=== PATIENT | female | born 1980 | race Caucasian/White ===

== ENCOUNTER 2019-08-11 02:54 | Emergency (ER) | payer BC, SELFPAY ==
[2019-08-11] VITALS (11 sets, daily range): BP systolic 101–168; BP diastolic 63–92; PULSE 69–98; RESP 15–18; TEMP 36.8; O2SAT 95–100; BMI 49.6
--- NOTE | 2019-08-11 03:20 | ED_ITS ---
Entered by Mine Dan, acting as scribe for Jere Gregory DO Documented by User: Jere Gregory DO 08/11/19 06:20 HPI - Abdominal Pain General: Chief Complaint: Abdominal Pain Stated Complaint: ABD PAIN Time Seen by Provider: 08/11/19 03:05 Source: patient Mode of arrival: ambulatory History of Present Illness: HPI narrative: 39 y/o female presents to the ED with complaint of abd pain for the past 11 hours. Pt states she has had increased gas/belching. MD elicited complaint: abdominal pain Onset (ago): hour(s) (11) Pain Consistency: constant Location: Other (right side/hip) Severity: mild Radiation: RLQ and back Associated Symptoms: Reports belching, bloating and nausea; Denies chills, dysuria, fever(s), hematochezia, hematuria, melena and vomiting Review of Systems Const: Denies: fever or chills ENMT: Denies: painful swallowing, swelling of lips/tongue, bleeding gums or post nasal drip Card: Denies: chest pain, palpitations, irregular heart rhythm, edema, swelling of feet/ankles, shortness of breath on exertion or shortness of breath when lying down Resp: Denies: shortness of breath, productive cough, non-productive cough or wheezing GI: Reports: abdominal pain, nausea, bloating and belching; Denies: vomiting, rectal pain, blood in stool or black tarry stool : Reports: flank pain; Denies: painful urination, urinary frequency, urinary urgency or blood in urine Musc: Reports: back pain; Denies: neck pain Skin/Breast: Denies: rash, itching or redness Neuro: Denies: headache, dizziness or vertigo Psych: Denies: anxiety PFSH ED PFSH: Statuses (acute, chronic, etc) shown below reflect problem list status as previously entered and may not be historically accurate Medical History (Updated 08/11/19 @ 14:35 by Everett Gibson MD) Chronic tension headaches (Acute) Depression (Acute) Hypertension (Acute) Says when she lost some weight, the hypertension got better and she is now off medication Surgical History (Updated 08/11/19 @ 14:23 by Everett Gibson MD) No history of previous surgery (Acute) Social History Smoking and tobacco status: never smoked Physical Exam Const: GENERAL APPEARANCE: well developed ORIENTATION/CONSCIOUSNESS: Yes oriented to person, Yes oriented to place and Yes oriented to time HENMT: COMMON NORMALS: normocephalic, external ears normal and external nose normal HEAD & SCALP: normocephalic; no scalp tenderness FACE & SINUS: normal facial exam NOSE: external nose normal and no nasal discharge EXTERNAL EAR: Yes external ears normal Eye: COMMON NORMALS: PERRL, EOMs intact bilaterally and conjunctivae normal EYELID: eyelids normal CONJUNCTIVA: Yes conjunctivae normal PUPIL: Yes PERRL Neck/C-Spine: COMMON NORMALS: full ROM GENERAL: No tracheal deviation Chest: COMMONS NORMALS: inspection of chest normal CHEST: No tenderness Resp: COMMON NORMALS: clear to auscultation bilaterally EFFORT & INSPECTION: No tachypneic, No respiratory distress, No retractions, No uses accessory muscles and No tracheal deviation AUSCULTATION: clear to auscultation bilaterally, no rhonchi, no wheezes and lung sounds not diminished Cardio: COMMON NORMALS: regular rate and regular rhythm RATE: regular rate RHYTHM: regular rhythm HEART SOUNDS: no murmurs PERIPHERAL PULSES: radial pulses present GI: COMMON NORMALS: soft to palpation INSPECTION: No abdominal distension and Yes central obesity AUSCULTATION: No hyperactive bowel sounds and No hypoactive bowel sounds PALPATION: Yes soft, Yes tender Details: RLQ, RUQ and other (epigastric), No guarding, No rigid and Yes rebound tenderness present (mild) PERCUSSION: no dullness to percussion and no tympanic to percussion : BLADDER/KIDNEY EXAM: Yes CVA tenderness on the right Back/Pelvis: GENERAL BACK: Yes CVA tenderness Neuro: SENSORIUM/ORIENTATION: Yes oriented to person, Yes oriented to place and Yes oriented to time Psych: COMMON NORMALS: mental status grossly normal Skin: COMMON NORMALS: no rashes or lesions noted GENERAL SKIN EXAM: no rashes or lesions noted Course ED course: 39-year-old female with epigastric and right upper quadrant pain. She is tender. Her white count is 9.4. She has significant elevation in her liver enzymes with a bilirubin of 3.8. CT shows dilatation of the biliary tree without gallbladder wall thickening or apparent stone. Gallbladder ultrasound has been ordered. She will be checked out to Dr. Holden. Vital Signs: Vital signs: Vital Signs Temperature 98.3 F 08/11/19 03:12 Pulse Rate 91 08/11/19 14:20 Respiratory Rate 18 08/11/19 06:00 Blood Pressure 131/82 08/11/19 14:20 Pulse Oximetry 97 08/11/19 14:20 MDM - Abdominal Pain Lab Data: Labs: Lab Results 08/11/19 08/11/19 08/11/19 Range/Units 03:56 03:56 03:56 WBC 9.4 (4.0-10.0) 10^3/ uL RBC 5.04 (4.1-5.3) 10^6/u L Hgb 14.4 (11.5-15.3) g/dL Hct 42.9 (37.0-47.0) % MCV 85.1 (81-99) fL MCH 28.6 (28.0-34.0) pg MCHC 33.6 (30.0-36.0) g/dL RDW 14.6 (12.1-15.1) % Plt Count 236 (130-400) 10^3/c mm MPV 9.1 (7.4-10.4) fL Neut % (Auto) 84.2 % Lymph % (Auto) 10.6 % [place] % (Auto) 4.4 % Eos % (Auto) 0.4 % Baso % (Auto) 0.2 % Neut # (Auto) 7.9 H (1.8-7.7) 10^3/u L Lymph # (Auto) 1.0 (0.8-4.8) 10^3/u L [place] # (Auto) 0.4 (0.2-0.9) 10^3/u L Eos # (Auto) 0.0 (0.0-0.8) 10^3/u L Baso # (Auto) 0.0 (0.0-0.1) 10^3/u L Nucleated RBC % (a uto) 0 % Nucleated RBCs # 0.0 /100WBC Sodium 135 L (136-145) mmol/L Potassium 4.0 (3.5-5.1) mmol/L Chloride 102 (98-107) mmol/L Carbon Dioxide 22 (22-29) mmol/L Anion Gap 15.0 (5-19) BUN 5 L (6-20) mg/dL Creatinine 0.6 (0.5-0.9) mg/dL GFR Calculation 110.7 (90-130) mL/min Glucose 159 H (74-109) mg/dL Calcium 10.1 (8.5-10.5) mg/dL Total Bilirubin 3.8 H (0.15-1.2) mg/dL AST 455 H (0-32) U/L ALT 650 H (0-33) U/L Alkaline Phosphata se 136 H (35-105) IU/L C-Reactive Protein 6.2 H (0.0-4.9) mg/L Total Protein 7.7 (6.6-8.7) g/dL Albumin 4.1 (3.5-5.2) g/dL Globulin 3.6 (1.3-4.6) g/dL Lipase 3546 H (13-60) U/L HCG, Qual Negative (Negative) Urine Color (Yellow) Urine Appearance (CLEAR) Urine pH (5-7) Ur Specific Gravit y (1.005-1.030) Urine Protein (Negative) Urine Glucose (UA) (Normal) Urine Ketones (Negative) Urine Occult Blood (Negative) Urine Nitrate (Negative) Urine Bilirubin (NEGATIVE) Urine Urobilinogen (Negative) mg/dL Ur Leukocyte Katie ase (Negative) Urine RBC (0-2) /hpf Urine WBC (0-5) /hpf Ur Squamous Epith Cells (0-5) Urine Bacteria (NONE) 08/11/19 Range/Units 04:00 WBC (4.0-10.0) 10^3/ uL RBC (4.1-5.3) 10^6/u L Hgb (11.5-15.3) g/dL Hct (37.0-47.0) % MCV (81-99) fL MCH (28.0-34.0) pg MCHC (30.0-36.0) g/dL RDW (12.1-15.1) % Plt Count (130-400) 10^3/c mm MPV (7.4-10.4) fL Neut % (Auto) % Lymph % (Auto) % [place] % (Auto) % Eos % (Auto) % Baso % (Auto) % Neut # (Auto) (1.8-7.7) 10^3/u L Lymph # (Auto) (0.8-4.8) 10^3/u L [place] # (Auto) (0.2-0.9) 10^3/u L Eos # (Auto) (0.0-0.8) 10^3/u L Baso # (Auto) (0.0-0.1) 10^3/u L Nucleated RBC % (a uto) % Nucleated RBCs # /100WBC Sodium (136-145) mmol/L Potassium (3.5-5.1) mmol/L Chloride (98-107) mmol/L Carbon Dioxide (22-29) mmol/L Anion Gap (5-19) BUN (6-20) mg/dL Creatinine (0.5-0.9) mg/dL GFR Calculation (90-130) mL/min Glucose (74-109) mg/dL Calcium (8.5-10.5) mg/dL Total Bilirubin (0.15-1.2) mg/dL AST (0-32) U/L ALT (0-33) U/L Alkaline Phosphata se (35-105) IU/L C-Reactive Protein (0.0-4.9) mg/L Total Protein (6.6-8.7) g/dL Albumin (3.5-5.2) g/dL Globulin (1.3-4.6) g/dL Lipase (13-60) U/L HCG, Qual (Negative) Urine Color Yellow (Yellow) Urine Appearance Clear (CLEAR) Urine pH 7 (5-7) Ur Specific Gravit y 1.010 (1.005-1.030) Urine Protein Neg (Negative) Urine Glucose (UA) Norm (Normal) Urine Ketones Negative (Negative) Urine Occult Blood Trace H (Negative) Urine Nitrate Negative (Negative) Urine Bilirubin Neg (NEGATIVE) Urine Urobilinogen Norm (Negative) mg/dL Ur Leukocyte Katie ase Negative (Negative) Urine RBC Rare (0-2) /hpf Urine WBC 0-4 H (0-5) /hpf Ur Squamous Epith Cells 0-4 H (0-5) Urine Bacteria 1+ H (NONE) Discharge Plan Discharge Patient Disposition: Home, Self-Care Clinical Impression: Cholelithiasis and acute cholecystitis without obstruction Condition: Stable Prescriptions: New hydrocodone-acetaminophen 5-325 mg tablet 1 tab PO Q6H PRN (Reason: pain) Qty: 20 RF: 0 Zofran 4 mg tablet 4 mg PO Q6H PRN (Reason: nausea and vomiting) Qty: 14 RF: 0 omeprazole 20 mg tablet,delayed release (DR/EC) 20 mg PO DAILY 56 Days Qty: 56 RF: 0 No Action Latuda 60 mg tablet 60 mg PO DAILY RF: 0 Discharge Orders: Discharge Order (Routine); Ordered 08/11/19 Ordered By: Papito Pendleton Referrals: Everett Gibson MD [Physician] - (Please call Dr. Gibson's office to make an appointment to be seen as soon as you are able) Discharge Diet: Low Fat and Clear Liquid Discharge Activity: Increase activity as tolerated Activity Restrictions/Additional Instructions: Low-fat diet. Pain medications and nausea medications as above. Has recurrence of symptoms and pains uncontrolled return follow-up with Dr. Gibson's office within the week. Discharge Date/Time: 08/11/19 14:20 Sign Out Sign Out Data: Patient Sign Out occurred on 08/11/19 at 07:02. Patient's care was discussed, and care was transferred from to Papito Pendleton DO. 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 Gregory at change of shift. There is a concern about common bile duct obstruction based on the CT. Ultrasound does not show significant dilation of the common bile duct will get MRCP discussed with patient Discussed with Dr. Gibson he felt the patient be transferred to [place] to a GI specialist for possible ERCP. After conferring with Sor[facility] they refused transfer stating that they would have general surgery do a cholecystectomy and do a intraoperative cholangiogram. I discussed again with Dr. Gibson he came and seen the patient ultimately the patient decided they would rather go home follow-up for scheduled cholecystectomy at a later date see the discharge instructions. Patient was advised to contact Dr. solorio within the next week to set up a follow-up appointment to arrange for definitive care. PFS ED PFSH: Statuses (acute, chronic, etc) shown below reflect problem list status as previously entered and may not be historically accurate Medical History (Updated 08/11/19 @ 14:35 by Everett Gibson MD) Chronic tension headaches (Acute) Depression (Acute) Hypertension (Acute) Says when she lost some weight, the hypertension got better and she is now off medication Surgical History (Updated 08/11/19 @ 14:23 by Everett Gibson MD) No history of previous surgery (Acute) Social History Smoking and tobacco status: never smoked Course Vital Signs: Vital signs: Vital Signs Temperature 98.3 F 08/11/19 03:12 Pulse Rate 91 08/11/19 14:20 Respiratory Rate 18 08/11/19 06:00 Blood Pressure 131/82 08/11/19 14:20 Pulse Oximetry 97 08/11/19 14:20 MDM - Abdominal Pain Lab Data: Labs: Lab Results 08/11/19 08/11/19 08/11/19 Range/Units 03:56 03:56 03:56 WBC 9.4 (4.0-10.0) 10^3/ uL RBC 5.04 (4.1-5.3) 10^6/u L Hgb 14.4 (11.5-15.3) g/dL Hct 42.9 (37.0-47.0) % MCV 85.1 (81-99) fL MCH 28.6 (28.0-34.0) pg MCHC 33.6 (30.0-36.0) g/dL RDW 14.6 (12.1-15.1) % Plt Count 236 (130-400) 10^3/c mm MPV 9.1 (7.4-10.4) fL Neut % (Auto) 84.2 % Lymph % (Auto) 10.6 % [place] % (Auto) 4.4 % Eos % (Auto) 0.4 % Baso % (Auto) 0.2 % Neut # (Auto) 7.9 H (1.8-7.7) 10^3/u L Lymph # (Auto) 1.0 (0.8-4.8) 10^3/u L [place] # (Auto) 0.4 (0.2-0.9) 10^3/u L Eos # (Auto) 0.0 (0.0-0.8) 10^3/u L Baso # (Auto) 0.0 (0.0-0.1) 10^3/u L Nucleated RBC % (a uto) 0 % Nucleated RBCs # 0.0 /100WBC Sodium 135 L (136-145) mmol/L Potassium 4.0 (3.5-5.1) mmol/L Chloride 102 (98-107) mmol/L Carbon Dioxide 22 (22-29) mmol/L Anion Gap 15.0 (5-19) BUN 5 L (6-20) mg/dL Creatinine 0.6 (0.5-0.9) mg/dL GFR Calculation 110.7 (90-130) mL/min Glucose 159 H (74-109) mg/dL Calcium 10.1 (8.5-10.5) mg/dL Total Bilirubin 3.8 H (0.15-1.2) mg/dL AST 455 H (0-32) U/L ALT 650 H (0-33) U/L Alkaline Phosphata se 136 H (35-105) IU/L C-Reactive Protein 6.2 H (0.0-4.9) mg/L Total Protein 7.7 (6.6-8.7) g/dL Albumin 4.1 (3.5-5.2) g/dL Globulin 3.6 (1.3-4.6) g/dL Lipase 3546 H (13-60) U/L HCG, Qual Negative (Negative) Urine Color (Yellow) Urine Appearance (CLEAR) Urine pH (5-7) Ur Specific Gravit y (1.005-1.030) Urine Protein (Negative) Urine Glucose (UA) (Normal) Urine Ketones (Negative) Urine Occult Blood (Negative) Urine Nitrate (Negative) Urine Bilirubin (NEGATIVE) Urine Urobilinogen (Negative) mg/dL Ur Leukocyte Katie ase (Negative) Urine RBC (0-2) /hpf Urine WBC (0-5) /hpf Ur Squamous Epith Cells (0-5) Urine Bacteria (NONE) 08/11/19 Range/Units 04:00 WBC (4.0-10.0) 10^3/ uL RBC (4.1-5.3) 10^6/u L Hgb (11.5-15.3) g/dL Hct (37.0-47.0) % MCV (81-99) fL MCH (28.0-34.0) pg MCHC (30.0-36.0) g/dL RDW (12.1-15.1) % Plt Count (130-400) 10^3/c mm MPV (7.4-10.4) fL Neut % (Auto) % Lymph % (Auto) % [place] % (Auto) % Eos % (Auto) % Baso % (Auto) % Neut # (Auto) (1.8-7.7) 10^3/u L Lymph # (Auto) (0.8-4.8) 10^3/u L [place] # (Auto) (0.2-0.9) 10^3/u L Eos # (Auto) (0.0-0.8) 10^3/u L Baso # (Auto) (0.0-0.1) 10^3/u L Nucleated RBC % (a uto) % Nucleated RBCs # /100WBC Sodium (136-145) mmol/L Potassium (3.5-5.1) mmol/L Chloride (98-107) mmol/L Carbon Dioxide (22-29) mmol/L Anion Gap (5-19) BUN (6-20) mg/dL Creatinine (0.5-0.9) mg/dL GFR Calculation (90-130) mL/min Glucose (74-109) mg/dL Calcium (8.5-10.5) mg/dL Total Bilirubin (0.15-1.2) mg/dL AST (0-32) U/L ALT (0-33) U/L Alkaline Phosphata se (35-105) IU/L C-Reactive Protein (0.0-4.9) mg/L Total Protein (6.6-8.7) g/dL Albumin (3.5-5.2) g/dL Globulin (1.3-4.6) g/dL Lipase (13-60) U/L HCG, Qual (Negative) Urine Color Yellow (Yellow) Urine Appearance Clear (CLEAR) Urine pH 7 (5-7) Ur Specific Gravit y 1.010 (1.005-1.030) Urine Protein Neg (Negative) Urine Glucose (UA) Norm (Normal) Urine Ketones Negative (Negative) Urine Occult Blood Trace H (Negative) Urine Nitrate Negative (Negative) Urine Bilirubin Neg (NEGATIVE) Urine Urobilinogen Norm (Negative) mg/dL Ur Leukocyte Katie ase Negative (Negative) Urine RBC Rare (0-2) /hpf Urine WBC 0-4 H (0-5) /hpf Ur Squamous Epith Cells 0-4 H (0-5) Urine Bacteria 1+ H (NONE) Discharge Plan Discharge Patient Disposition: Home, Self-Care Clinical Impression: Cholelithiasis and acute cholecystitis without obstruction Condition: Stable Prescriptions: New hydrocodone-acetaminophen 5-325 mg tablet 1 tab PO Q6H PRN (Reason: pain) Qty: 20 RF: 0 Zofran 4 mg tablet 4 mg PO Q6H PRN (Reason: nausea and vomiting) Qty: 14 RF: 0 omeprazole 20 mg tablet,delayed release (DR/EC) 20 mg PO DAILY 56 Days Qty: 56 RF: 0 No Action Latuda 60 mg tablet 60 mg PO DAILY RF: 0 Discharge Orders: Discharge Order (Routine); Ordered 08/11/19 Ordered By: Papito Pednleton Referrals: Everett Gibson MD [Physician] - (Please call Dr. Gibson's office to make an appointment to be seen as soon as you are able) Discharge Diet: Low Fat and Clear Liquid Discharge Activity: Increase activity as tolerated Activity Restrictions/Additional Instructions: Low-fat diet. Pain medications and nausea medications as above. Has recurrence of symptoms and pains uncontrolled return follow-up with Dr. Gibson's office within the week. Discharge Date/Time: 08/11/19 14:20 Sign Out Sign Out Data: Patient Sign Out occurred on 08/11/19 at 07:02. Patient's care was discussed, and care was transferred from to Papito Pendleton DO. Coding Level of Care Code ED Cured Meat Packing Supervisor for Chg Fwd The documentation recorded by the pabloibeSy Ashley, accurately reflects the service I personally performed and the decisions made by , Jere Gregory DO Aug 11, 2019 02:54
--- NOTE | 2019-08-11 03:40 | CTR_ITS ---
PROCEDURE INFORMATION: Exam: CT Abdomen And Pelvis With Contrast Exam date and time: 08/11/2019 4:15 AM Age: 39 years old Clinical indication: Abdominal pain; Localized; Right lower quadrant (rlq); Additional info: Abd pain TECHNIQUE: Imaging protocol: Computed tomography of the abdomen and pelvis with intravenous contrast. Total DLP: 2001.98 mGy-cm Radiation optimization: All CT scans at this facility use at least one of these dose optimization techniques: automated exposure control; mA and/or kV adjustment per patient size (includes targeted exams where dose is matched to clinical indication); or iterative reconstruction. Contrast material: OMNI 300; Contrast volume: 95 ml; Contrast route: IV; COMPARISON: US pelvic with transvaginal 06/06/2016 7:52 AM FINDINGS: Visualized portions of the lung bases are clear. Mild intrahepatic biliary dilation. The common bile duct is dilated to 1 cm maximally. No obstructing stone or mass directly identified. The gallbladder, spleen, pancreas, adrenal glands, and kidneys are unremarkable. A normal-appearing appendix is seen in the right lower quadrant. No evidence of bowel obstruction. No evidence of diverticulitis. No free intraperitoneal air or fluid identified. The bladder and uterus are unremarkable. The abdominal aorta is nonaneurysmal. Mild degenerative changes of the lower thoracic spine and the lumbar spine. CT/CT abdomen pelvis w con* [id number] IMPRESSION: 1. Intrahepatic and extrahepatic biliary dilation identified. No obstructing stone or mass directly identified. Radiation Dose CTDIVOL = (mGy): DLP = 2001.98 (mGy-cm)
[2019-08-11] MEDS: sodium chloride 0.9% 1,000 ML 999 ML IV (04:03)
[2019-08-11 04:05] LABS: Basophils % 0.2 %; Eosinophils % 0.4 %; Hematocrit 42.9 % (37.0-47.0); Hemoglobin 14.4 g/dL (11.5-15.3); Lymphocytes % 10.6 %; Mean Corpuscular HGB Conc 33.6 g/dL (30.0-36.0); Mean Corpuscular Hemoglobin 28.6 pg (28.0-34.0); Mean Corpuscular Volume 85.1 fL (81-99); Mean Platelet Volume 9.1 fL (7.4-10.4); Monocytes # 0.4 10^3/uL (0.2-0.9); Monocytes % 4.4 %; Neutrophils # 7.9 10^3/uL (1.8-7.7); Neutrophils % 84.2 %; Nucleated Red Blood Cells % 0 %; Platelet Count 236 10^3/cmm (130-400); Red Blood Count 5.04 10^6/uL (4.1-5.3); Red Cell Distribution Width 14.6 % (12.1-15.1); White Blood Count 9.4 10^3/uL (4.0-10.0)
[2019-08-11] MEDS: ondansetron 2 mg/ML SDV 2 mL 4 MG IM (04:06)
[2019-08-11] MEDS: ketorolac 30 mg/mL INJ IVP (04:06)
[2019-08-11] MEDS: morphine 4 mg/mL SDV 1 mL IVP (04:08)
[2019-08-11] MEDS: iohexol 300 mg/mL 100 mL Btl IV (04:17)
[2019-08-11 04:20] LABS: Add Urine Microscopic? YES; Bilirubin Urine Neg (NEGATIVE); Blood Urine Trace (Negative); Glucose Urine UA Norm (Normal); Ketones Urine Negative (Negative); Leukocyte Esterase Urine Negative (Negative); Nitrate Urine Negative (Negative); Protein Urine Neg (Negative); RBC Urine RARE /hpf (0-2); Squamous Epithelial Cell Urine 0-4 (0-5); Urine Appearance Clear (CLEAR); Urine Color Yellow (Yellow); Urobilinogen Urine Norm (Negative); WBC Urine 0-4 /hpf (0-5); pH Urine 7 (5-7)
[2019-08-11 04:21] LABS: Add Urine Culture? No; Bacteria Urine 1+
[2019-08-11 04:25] LABS: HCG, Serum Qual Negative (Negative)
[2019-08-11 04:33] LABS: Alanine Aminotransferase 650 U/L (0-33); Albumin Level 4.1 g/dL (3.5-5.2); Alkaline Phosphatase 136 IU/L (35-105); Aspartate Amino Transferase 455 U/L (0-32); Blood Urea Nitrogen 5 mg/dL (6-20); Calcium 10.1 mg/dL (8.5-10.5); Carbon Dioxide 22 mmol/L (22-29); Chloride 102 mmol/L (98-107); Globulin 3.6 g/dL (1.3-4.6); Glomerular Filtration Rate 110.7 mL/min (90-130); Glucose 159 mg/dL (74-109); Sodium 135 mmol/L (136-145); Total Bilirubin 3.8 mg/dL (0.15-1.2); Total Protein 7.7 g/dL (6.6-8.7)
[2019-08-11 05:10] LABS: C Reactive Protein 6.2 mg/L (0.0-4.9)
--- NOTE | 2019-08-11 05:48 | US_ITS ---
WS: [id number] ULTRASOUND ABDOMEN LIMITED CLINICAL INFORMATION: ruq pain, elevated lft COMPARISON: None. FINDINGS: Liver Size: Enlarged Craniocaudal length: 20.7 cm. Echogenicity: Normal. Surface nodularity: None. Mass (size and location): None. Bile ducts Intrahepatic ducts: Mild dilatation Common bile duct diameter: 8.2 mm. Gallbladder is contracted Cholelithiasis Gallstones: Present Gallbladder sludge: Present Gallbladder wall thickenin.3 mm Pericholecystic fluid: None. Sonographic Lopez sign: Absent. Pancreas Normal as visualized. Right kidney: Normal. Hydronephrosis: None. Size: 12.5 cm x 6.1 cm x 5.3 cm. Abdominal aorta and IVC Visualized portions are normal. Ascites: None. US/US gall bladder [id number] IMPRESSION: 1. Hepatomegaly with mild intrahepatic biliary ductal dilatation. 2. Gallbladder is contracted. Cholelithiasis with sludge. Mild wall thickening measuring 4.3 mm. 3. Dilated common bile duct measuring 8.2 mm. No visualized choledocholithiasi s. 4. No hydronephrosis in right kidney.
[2019-08-11 06:52] LABS: Lipase 3546 U/L (13-60)
--- NOTE | 2019-08-11 07:03 | MR_ITS ---
WS: [id number] MRI/MRCP OF THE ABDOMEN WITHOUT GADOLINIUM ENHANCEMENT TECHNIQUE: Thin and thick slab MRCP, Axial T2, Coronal MRCP, Axial Dual Echo, and Axial 2-D Fiesta imaging was obtained. Coronal 2-D Fiesta imaging. CLINICAL INFORMATION: elevated LFTs, gallstones on US, mildly dialated CBD COMPARISON: Ultrasound and CT August 11, 2019 FINDINGS: Liver is normal in appearance. Minimal intrahepatic biliary ductal dilatation. Normal portal vein and splenic vein. Common bile duct appears to taper normally. No visualized common bile duct filling def ects to indicate choledocholithiasis. Pancreas is normal in appearance. Normal abdominal aorta. Gallb ladder is contracted. Cholelithiasis. Sludge in gallbladder. Both kidneys are normal in appearance. No hydronephrosis. Adrenal glands are normal. MR/MR MRCP [id number] Impression: 1. Minimal intrahepatic biliary duct dilatation. No choledocholithiasis. 2. Common bile duct tapers normally to the pancreatic head. 3. No filling defects in the common bile duct. 4. Gallbladder is contracted with cholelithiasis.
--- NOTE | 2019-08-11 10:34 | PC.NURSE ---
pt off unit to MRI with ambulance
--- NOTE | 2019-08-11 11:57 | PC.NURSE ---
pt back from MRI
--- NOTE | 2019-08-11 12:48 | PC.NURSE ---
pt reported to be in abd pain. Orders received for morphine. Medication offered to Pt and Pt declined at this time.
--- NOTE | 2019-08-11 13:30 | ED_ITS ---
Entered by Bethany Cummings, acting as scribe for Aug 11, 2019 02:54 HPI - Abdominal Pain General: Chief Complaint: Abdominal Pain Stated Complaint: ABD PAIN Time Seen by Provider: 08/11/19 03:05 Source: patient Mode of arrival: ambulatory History of Present Illness: MD elicited complaint: abdominal pain Severity: mild PFSH ED PFSH: Statuses (acute, chronic, etc) shown below reflect problem list status as previously entered and may not be historically accurate Medical History (Updated 08/11/19 @ 14:35 by Everett Gibson MD) Chronic tension headaches (Acute) Depression (Acute) Hypertension (Acute) Says when she lost some weight, the hypertension got better and she is now off medication Surgical History (Updated 08/11/19 @ 14:23 by Everett Gibson MD) No history of previous surgery (Acute) Social History Smoking and tobacco status: never smoked Course Consultations: Consultation #1: Discussed case with Dr. Gibson, he felt it was necessary for pt to be transferred. Spoke with patient, informed her she would needed to be transferred, she requested to go to [facility]. Time: 12:55 Consultation #2: Called [facility] Transfer lineKari the transfer coodinator stated that she would get a surgeon for us to talk with. Kari stated that she will call us back when she has one online. Time: 13:00 Consultation #3: Called [facility] Transfer lineKari the transfer coodinator stated that she would get a surgeon for us to talk with. Kari stated that she will call us back when she has one online Time: 13:15 Additional Consultation(s): 13:25- Contacted Dr. Gibson back, informed him what the surgeon at [facility] stated. Dr. Gibson agreed to come down and see patient in the ED. Vital Signs: Vital signs: Vital Signs Temperature 98.3 F 08/11/19 03:12 Pulse Rate 91 08/11/19 14:20 Respiratory Rate 18 08/11/19 06:00 Blood Pressure 131/82 08/11/19 14:20 Pulse Oximetry 97 08/11/19 14:20 MDM - Abdominal Pain Lab Data: Labs: Lab Results 02/03/20 02/03/20 02/03/20 Range/Units 03:56 03:56 03:56 WBC 9.4 (4.0-10.0) 10^3/ uL RBC 5.04 (4.1-5.3) 10^6/u L Hgb 14.4 (11.5-15.3) g/dL Hct 42.9 (37.0-47.0) % MCV 85.1 (81-99) fL MCH 28.6 (28.0-34.0) pg MCHC 33.6 (30.0-36.0) g/dL RDW 14.6 (12.1-15.1) % Plt Count 236 (130-400) 10^3/c mm MPV 9.1 (7.4-10.4) fL Neut % (Auto) 84.2 % Lymph % (Auto) 10.6 % Ector % (Auto) 4.4 % Eos % (Auto) 0.4 % Baso % (Auto) 0.2 % Neut # (Auto) 7.9 H (1.8-7.7) 10^3/u L Lymph # (Auto) 1.0 (0.8-4.8) 10^3/u L Ector # (Auto) 0.4 (0.2-0.9) 10^3/u L Eos # (Auto) 0.0 (0.0-0.8) 10^3/u L Baso # (Auto) 0.0 (0.0-0.1) 10^3/u L Nucleated RBC % (a uto) 0 % Nucleated RBCs # 0.0 /100WBC Sodium 135 L (136-145) mmol/L Potassium 4.0 (3.5-5.1) mmol/L Chloride 102 (98-107) mmol/L Carbon Dioxide 22 (22-29) mmol/L Anion Gap 15.0 (5-19) BUN 5 L (6-20) mg/dL Creatinine 0.6 (0.5-0.9) mg/dL GFR Calculation 110.7 (90-130) mL/min Glucose 159 H (74-109) mg/dL Calcium 10.1 (8.5-10.5) mg/dL Total Bilirubin 3.8 H (0.15-1.2) mg/dL AST 455 H (0-32) U/L ALT 650 H (0-33) U/L Alkaline Phosphata se 136 H (35-105) IU/L C-Reactive Protein 6.2 H (0.0-4.9) mg/L Total Protein 7.7 (6.6-8.7) g/dL Albumin 4.1 (3.5-5.2) g/dL Globulin 3.6 (1.3-4.6) g/dL Lipase 3546 H (13-60) U/L HCG, Qual Negative (Negative) Urine Color (Yellow) Urine Appearance (CLEAR) Urine pH (5-7) Ur Specific Gravit y (1.005-1.030) Urine Protein (Negative) Urine Glucose (UA) (Normal) Urine Ketones (Negative) Urine Occult Blood (Negative) Urine Nitrate (Negative) Urine Bilirubin (NEGATIVE) Urine Urobilinogen (Negative) mg/dL Ur Leukocyte Katie ase (Negative) Urine RBC (0-2) /hpf Urine WBC (0-5) /hpf Ur Squamous Epith Cells (0-5) Urine Bacteria (NONE) 08/11/19 Range/Units 04:00 WBC (4.0-10.0) 10^3/ uL RBC (4.1-5.3) 10^6/u L Hgb (11.5-15.3) g/dL Hct (37.0-47.0) % MCV (81-99) fL MCH (28.0-34.0) pg MCHC (30.0-36.0) g/dL RDW (12.1-15.1) % Plt Count (130-400) 10^3/c mm MPV (7.4-10.4) fL Neut % (Auto) % Lymph % (Auto) % Ector % (Auto) % Eos % (Auto) % Baso % (Auto) % Neut # (Auto) (1.8-7.7) 10^3/u L Lymph # (Auto) (0.8-4.8) 10^3/u L Ector # (Auto) (0.2-0.9) 10^3/u L Eos # (Auto) (0.0-0.8) 10^3/u L Baso # (Auto) (0.0-0.1) 10^3/u L Nucleated RBC % (a uto) % Nucleated RBCs # /100WBC Sodium (136-145) mmol/L Potassium (3.5-5.1) mmol/L Chloride (98-107) mmol/L Carbon Dioxide (22-29) mmol/L Anion Gap (5-19) BUN (6-20) mg/dL Creatinine (0.5-0.9) mg/dL GFR Calculation (90-130) mL/min Glucose (74-109) mg/dL Calcium (8.5-10.5) mg/dL Total Bilirubin (0.15-1.2) mg/dL AST (0-32) U/L ALT (0-33) U/L Alkaline Phosphata se (35-105) IU/L C-Reactive Protein (0.0-4.9) mg/L Total Protein (6.6-8.7) g/dL Albumin (3.5-5.2) g/dL Globulin (1.3-4.6) g/dL Lipase (13-60) U/L HCG, Qual (Negative) Urine Color Yellow (Yellow) Urine Appearance Clear (CLEAR) Urine pH 7 (5-7) Ur Specific Gravit y 1.010 (1.005-1.030) Urine Protein Neg (Negative) Urine Glucose (UA) Norm (Normal) Urine Ketones Negative (Negative) Urine Occult Blood Trace H (Negative) Urine Nitrate Negative (Negative) Urine Bilirubin Neg (NEGATIVE) Urine Urobilinogen Norm (Negative) mg/dL Ur Leukocyte Katie ase Negative (Negative) Urine RBC Rare (0-2) /hpf Urine WBC 0-4 H (0-5) /hpf Ur Squamous Epith Cells 0-4 H (0-5) Urine Bacteria 1+ H (NONE) Discharge Plan Discharge Patient Disposition: Home, Self-Care Clinical Impression: Cholelithiasis and acute cholecystitis without obstruction Condition: Stable Prescriptions: New hydrocodone-acetaminophen 5-325 mg tablet 1 tab PO Q6H PRN (Reason: pain) Qty: 20 RF: 0 Zofran 4 mg tablet 4 mg PO Q6H PRN (Reason: nausea and vomiting) Qty: 14 RF: 0 omeprazole 20 mg tablet,delayed release (DR/EC) 20 mg PO DAILY 56 Days Qty: 56 RF: 0 No Action Latuda 60 mg tablet 60 mg PO DAILY RF: 0 Discharge Orders: Discharge Order (Routine); Ordered 08/11/19 Ordered By: Papito Pendleton Referrals: Everett Gibson MD [Physician] - (Please call Dr. Gibson's office to make an appointment to be seen as soon as you are able) Discharge Diet: Low Fat and Clear Liquid Discharge Activity: Increase activity as tolerated Activity Restrictions/Additional Instructions: Low-fat diet. Pain medications and nausea medications as above. Has recurrence of symptoms and pains uncontrolled return follow-up with Dr. Gibson's office within the week. Discharge Date/Time: 08/11/19 14:20 Sign Out Sign Out Data: Patient Sign Out occurred on 08/11/19 at 07:02. Patient's care was discussed, and care was transferred from to Papito Pendleton DO. Coding Level of Care Code ED Medical Staff Manager for [facility] The documentation recorded by the Emiliano carter Kialy, accurately reflects the service I personally performed and the decisions made by Helder eng Curtis L, DO Aug 11, 2019 02:54
--- NOTE | 2019-08-11 14:15 | PM.CONSULT ---
Providers/Reason For Consult Consulting Physican/Specialty*: General Surgery Everett Gibson MD Reason for Consult*: Probable gallstone pancreatitis. Requesting Physcian: Dr. Pendleton in the emergency room. Primary Care Provider: Miesha Herrera MD History of Present Illness History of Present Illness Iliana Wayne is a 39 year old female who developed some upper abdominal pain early yesterday. She said she felt very bloated, gassy and belchy with this. She may have been having some very mild nausea but never vomited. She came to the emergency room last night and multiple modalities of imaging were performed. The patient was found to have cholelithiasis with a possible thickened gallbladder wall but a normal white blood cell count. Her liver function studies were elevated as well as her serum lipase. No evidence of choledocholithiasis was evident on an MRCP. She had a bowel movement this morning that was fairly normal in terms of a brown color. She has not noticed any evidence of jaundice. The patient says that for at least a year she has been having episodes of abdominal pain that tend to be very short-lived, perhaps only a few hours at a time. She has noticed that eating fatty food tends to bother her. She said yesterday was the longest episode of pain that she had dealt with. Having said that, she says she actually feels very well right now and would like to go home. She has not had any pain medication in almost 8 hours. Because of her laboratory abnormalities, Dr. Pendleton had made an attempt to transfer the patient to a GI service for possible management, but they indicated they would just turn her over to the surgical service, so he asked if I would talk to her in the emergency room. She only takes Latuda at home and has been taking this for 2 years. She has no recent history of trauma. She does not drink alcohol on a regular basis. Review of Systems General: Reports: 10 or more systems reviewed and unremarkable except in HPI and below Const: Denies: fever or chills Eyes: Denies: yellow eyes GI: Reports: abdominal pain, bloating and belching; Denies: white/light colored stool Neuro: Reports: headache (History of) Psych: Reports: depression Meds/Allergies Home Medications and Allergies Home Medications Medication Instructions Recorded Confirmed Type lurasidone [Latuda] 60 mg PO DAILY 08/11/19 08/11/19 History Allergies Allergy/AdvReac Type Severity Reaction Status Date / Time No Known Allergies Allergy Verified 08/11/19 04:02 PFSH Acute PFSH: Statuses (acute, chronic, etc) shown below reflect problem list status as previously entered and may not be historically accurate Medical History (Updated 08/11/19 @ 14:35 by Everett Gibson MD) Chronic tension headaches (Acute) Depression (Acute) Hypertension (Acute) Says when she lost some weight, the hypertension got better and she is now off medication Surgical History (Updated 08/11/19 @ 14:23 by Everett Gibson MD) No history of previous surgery (Acute) Social History Smoking and tobacco status: never smoked Vitals/I&O/Wt Last Vital Signs Temp 98.3 F 08/11/19 03:12 Pulse 98 08/11/19 13:20 Resp 18 08/11/19 06:00 BP 161/63 08/11/19 13:20 Pulse Ox 99 08/11/19 13:20 Weight last 48 hrs Weight 280 lb Physical Exam Narrative: EXAM NARRATIVE: The patient was encountered in the emergency room in the presence of some blood family members. She does not appear to be in any acute distress. The pupils seem equal. No carotid bruits are heard. The lungs are clear. The heart is regular. The abdomen is morbidly obese but is soft. The patient does have some moderate epigastric tenderness with less tenderness off to either upper quadrant. The lower abdomen is nontender. Bowel sounds are present. No obvious masses are palpated. The extremities reveal no edema. Neurologically the patient appears to be grossly intact. Data Labs: Other Labs: Laboratory Tests 08/11/19 03:56 Total Bilirubin 3.8 H AST 455 H ALT 650 H Alkaline Phosphata se 136 H Laboratory Tests 08/11/19 03:56 Lipase 3546 H Imaging^: CT Abd/Pel: Radiologist's impression: IMPRESSION: 1. Intrahepatic and extrahepatic biliary dilation identified. No obstructing stone or mass directly identified. US: Radiologist's impression: IMPRESSION: 1. Hepatomegaly with mild intrahepatic biliary ductal dilatation. 2. Gallbladder is contracted. Cholelithiasis with sludge. Mild wall thickening measuring 4.3 mm. 3. Dilated common bile duct measuring 8.2 mm. No visualized choledocholithiasis. 4. No hydronephrosis in right kidney. MRCP: Radiologist's impression: Impression: 1. Minimal intrahepatic biliary duct dilatation. No choledocholithiasis. 2. Common bile duct tapers normally to the pancreatic head. 3. No filling defects in the common bile duct. 4. Gallbladder is contracted with cholelithiasis. A&P Assessment and plan (1) Gallstone pancreatitis: It appears that the patient is probably suffering from gallstone pancreatitis, and I suspect she recently passed a stone given her LFT abnormalities but no obvious residual choledocholithiasis on imaging, in addition to the fact that she is currently feeling so much better. We discussed gallstone pancreatitis, pancreatitis risks, cholecystectomy, the chances of this happening again, etc. I made the patient aware that we typically hospitalize people with pancreatitis and allow the pancreas inflammation to resolve before doing surgery during that same hospitalization. It sounds like she has been having some symptoms of biliary colic intermittently over the past year. She has requested to go home because she is feeling so much better. She said she is perfectly willing to do a clear liquid diet at home until she feels back to normal. I made her aware this may not be the safest approach, but I will be more than happy to get together with her as an outpatient and discuss a cholecystectomy in the near future if she desires. She seems understand and still would like to go home. She indicates that she will return to the hospital if she ends up having worsening symptoms again, but prefers to get together as an outpatient. Status: Acute Code(s): K85.10 - Biliary acute pancreatitis without necrosis or infection Consult Attestations Medical Necessity Statement: The patient is going to be discharged from the emergency room today at her request. I will be happy to follow-up with her in the office. Coding Level of Care Code Acute Corporate Communications Manager for [place] Diagnoses Gallstone pancreatitis K85.10
== END 2019-08-11 14:20 | disposition home or self-care (01) ==
PROVIDERS: Emergency Medicine; Emergency Provider Family Medicine; Family Provider Family Medicine; PCP Family Medicine
DX: K80.00 Calculus of gallbladder with acute cholecystitis without obstruction (principal); I10 Essential (primary) hypertension
CPT/HCPCS: 12345; 74177; 74181; 76705; 80053; 81001; 83690; 84703; 85025; 86140; 96360; 96361; 96374; 96375; 96376; 99283; A9270; J1885; J2270; J2405; J7030; Q9967

== ENCOUNTER → 2019-08-21 13:06 | Outpatient (BNVA) | payer BC, SELFPAY | PROVIDERS: Family Provider Family Medicine; PCP Family Medicine; Visit Provider Psychiatry & Neurology Psychiatry | DX: F31.81 Bipolar II disorder (principal); F32.9 Major depressive disorder, single episode, unspecified | CPT/HCPCS: 99213 ==

== ENCOUNTER → 2019-08-27 10:22 | Outpatient (BNVA) | payer BC, SELFPAY | PROVIDERS: Family Provider Family Medicine; PCP Family Medicine; Visit Provider Psychiatry & Neurology Psychiatry | DX: Z79.899 Other long term (current) drug therapy (principal); F32.9 Major depressive disorder, single episode, unspecified | CPT/HCPCS: 80061; 83036 ==

== ENCOUNTER 2019-09-04 09:13 | Day surgery (SDC) | payer BC, SELFPAY ==
[2019-09-03 14:02] VITALS: BMI 48.2
[2019-09-04] VITALS (9 sets, daily range): BP systolic 101–162; BP diastolic 68–98; PULSE 54–99; RESP 16–19; TEMP 36.2–36.4; O2SAT 96–100
[2019-09-04] MEDS: sodium chloride 0.9% 1,000 ML 30 ML IV (10:01)
[2019-09-04 10:03] LABS: OR HCG Qualitative Urine Negative (Negative)
--- NOTE | 2019-09-04 10:20 | ANES.PREANE2 ---
Pre-Anesthetic Assessment Pre-Anesthetic Assessment: Height/Weight: Height 1.6 m Weight 123.377 kg Temp Pulse Resp BP Pulse Ox 97.6 F 91 18 162/98 99 09/04/19 09:42 09/04/19 09:42 09/04/19 09:42 09/04/19 09:42 09/04/19 09:42 Preop Diagnosis: Gallstones Proposed Procedure: Operation Date: 09/04/19 10:45 Proposed Procedures p Laparoscopic poss open Cholecystectomy(Not Applicable) - Everett Gibson MD Familial anesthetic complications: NO trouble with anesthesia Was Beta Joao taken within 24 hours: N/A Last intake: Intake Last Liquid Date 09/03/19 Last Liquid Time 23:45 Last Solid Date 09/03/19 Last Solid Time 20:00 Social: Social History: No alcohol and No tobacco Exam: Pre-Anes Outpt Exam: alert, oriented x 3, clear to auscultation bilaterally and regular rate & rhythm Airway: Cervical ROM: WNL MP: 2 Dentition: Full Pulmonary: Pulmonary: URI Comments: No fever, slight cough but much better CV/HEM: CV/HEM: None reported : : None reported Hepatic: Hepatic: None reported GI: GI: None reported Metabolic: Metabolic: Morbid obesity Musc/skel: Musc/skel: None reported Neuropsych: Comments: chronic migraine Anesthetic Plan: ASA status: 2 Anesthesia: General Risk of > 500 ml blood loss (7ml/kg in children): No Meds/Allergies Current Medications: Current Medications Generic Name Dose Route Start Last Admin Trade Name Freq PRN Reason Stop Dose Admin Sodium Chloride 1,000 mls @ 30 ml s/hr 09/04/19 09:30 09/04/19 10:01 Sodium Chloride 0.9% IV 09/05/19 09:29 30 mls/hr .Q24H JUAN DANIEL Administration PFSH Anesthesia PFSH: Social History Smoking and tobacco status: never smoked Female Reproductive History: Date of last menstrual period: 08/18/19 Data Anesthesia Other Labs: Laboratory Results - last 48 hr 09/04/19 09:36 Urine HCG, Qual Negative Cardiac Studies: No Data to Display
[2019-09-04 10:36] LABS: Alanine Aminotransferase 17 U/L (0-33); Alkaline Phosphatase 71 IU/L (35-105); Amylase 68 U/L (28-100); Total Bilirubin 0.5 mg/dL (0.15-1.2)
[2019-09-04 10:37] LABS: Aspartate Amino Transferase 26 U/L (0-32); Lipase 84 U/L (13-60)
--- NOTE | 2019-09-04 10:53 | W.PM.OPSUD ---
Surgery/Procedure H&P Update DATE OF PROCEDURE: September 04, 2019 DATE H&P PERFORMED: 08/19/19 PREOP DIAGNOSIS: Gallstones PLANNED PROCEDURE: Operation Date: 09/04/19 10:45 Proposed Procedures p Laparoscopic poss open Cholecystectomy(Not Applicable) - Everett Gibson MD
--- NOTE | 2019-09-04 12:02 | PM.OP ---
Operative Report Date of procedure: September 04, 2019 Pre-op Diagnosis: Symptomatic cholelithiasis, status post episode of gallstone pancreatitis. Post-op diagnosis: same Procedure Done: Laparoscopic cholecystectomy. Specimens removed/disposition: Gallbladder. Surgeon: Everett Gibson Anesthesia: General Estimated blood loss (mL): 25 Complications: None. Condition: stable Disposition: PACU Procedure: The patient was brought to the Operating Room and was placed in a supine position on the Operating Room table. General endotracheal anesthesia was induced. The abdomen was prepped and draped in a sterile fashion. A small vertical incision was carried out in the inferior aspect of the umbilicus. Blunt dissection was carried out down to the fascia, which was grasped with a Whitney clamp. A stay suture of 0 Vicryl was placed on either side of the midline and the midline fascia was incised. The underlying peritoneum was opened bluntly and the Molly port was placed directly into the peritoneal cavity and was held in place with the inflatable balloon. The peritoneal cavity was insufflated with carbon dioxide. The laparoscope was used to inspect the abdominal cavity. No gross abnormalities were initially noted. A 5 millimeter port was placed in the epigastrium under direct vision. Two 5-millimeter ports were placed on the right side of the abdomen under direct vision. The gallbladder was grasped and was elevated. The patient was found to have multiple adhesions to the fundus and infundibular regions of the gallbladder. These were all taken down using blunt dissection with a minimum of cautery to maintain hemostasis. Blunt dissection and hydrodissection were carried out in the infundibular region of the gallbladder and the cystic duct and cystic artery were identified. The gallbladder was partially removed from the liver bed using cautery and the spatula to confirm the anatomy before the structures were clipped and divided. The gallbladder was then removed from the liver bed using cautery and the spatula. A very small hole was inadvertently made in the gallbladder during the dissection, and some small gallstones fell from the opening. These were eventually retrieved and were removed from the peritoneal cavity. After the gallbladder had been removed from the liver bed, the laparoscope was moved to the epigastric port and the gallbladder was removed from the peritoneal cavity through the umbilical port site after being placed in a laparoscopic bag along with the few spilled gallstones. The stay sutures of Vicryl were tied to each other at the umbilicus. An additional [id number] suture of 0 Vicryl was placed, closing the defect so that it was airtight. The perihepatic spaces were irrigated with saline and the liver bed was reinspected. No ongoing problems were seen. The remaining ports were removed from the abdominal wall and the pneumoperitoneum was evacuated. All skin incisions were closed using inverted interrupted sutures of 4-0 Vicryl. Benzoin and Steri-Strips were placed over the incisions and Band-Aids followed. The patient was taken to the Recovery Area in stable condition postoperatively.
--- NOTE | 2019-09-04 12:12 | SUR.PHASEI ---
1210 PATIENT TO PACU AT THIS TIME FROM OR. NO DISTRESS. RR EVEN AND UNLABORED. SPO2 100% ON SIMPLE MASK AT 6L. 4 INCISIONS TO ABDOMEN, CDI.
--- NOTE | 2019-09-04 12:43 | SUR.PHASEI ---
1236 PATIENT TO OPS AT THIS TIME. NO DISTRESS. 4 INCISIONS TO ABDOMEN CDI.
[2019-09-04] MEDS: HYDROcodone-acetaminophen 5-325 mg Tablet 1 TAB PO (13:30)
== END 2019-09-04 14:30 | disposition home or self-care (01) ==
PROVIDERS: Family Provider Family Medicine; PCP Family Medicine; Visit Provider Surgery
PROC: 0FT44ZZ Resection of Gallbladder, Percutaneous Endoscopic Approach (ICD-10-PCS; CPT 47562; principal; 2019-09-04 10:45)
DX: K80.21 Calculus of gallbladder without cholecystitis with obstruction (principal); Z82.49 Family history of ischemic heart disease and other diseases of the circulatory system; Z83.3 Family history of diabetes mellitus
CPT/HCPCS: 47562; 12345; 36415; 80076; 81025; 82150; 83690; 84703; 88304; 96365; J0131; J0690; J1100; J2001; J2405; J2704; J2710; J3010; J3490; J7030

== ENCOUNTER → 2019-12-10 08:19 | Outpatient (BNVA) | payer BC, SELFPAY | PROVIDERS: Family Provider Family Medicine; PCP Family Medicine; Visit Provider Psychiatry & Neurology Psychiatry | DX: F31.81 Bipolar II disorder (principal); F33.1 Major depressive disorder, recurrent, moderate | CPT/HCPCS: 99213 ==

== ENCOUNTER → 2020-06-16 07:56 | Outpatient (BNVA) | payer BC, SELFPAY | PROVIDERS: Family Provider Family Medicine; PCP Family Medicine; Visit Provider Psychiatry & Neurology Psychiatry | DX: Z79.899 Other long term (current) drug therapy (principal); F31.81 Bipolar II disorder | CPT/HCPCS: 99213 ==

== ENCOUNTER → 2020-07-26 07:46 | Outpatient (BNVA) | payer BC, SELFPAY | PROVIDERS: Family Provider Family Medicine; PCP Family Medicine; Visit Provider Psychiatry & Neurology Psychiatry | DX: F31.81 Bipolar II disorder (principal) | CPT/HCPCS: 99214 ==

== ENCOUNTER → 2020-08-05 09:27 | Outpatient (BNVA) | payer BC, SELFPAY | PROVIDERS: Family Provider Family Medicine; PCP Family Medicine; Visit Provider Psychiatry & Neurology Psychiatry | DX: F31.81 Bipolar II disorder (principal) | CPT/HCPCS: 99213 ==

== ENCOUNTER → 2020-08-27 08:12 | Outpatient (BNVA) | payer BC, SELFPAY | PROVIDERS: Family Provider Family Medicine; PCP Family Medicine; Visit Provider Psychiatry & Neurology Psychiatry | DX: F31.81 Bipolar II disorder (principal) | CPT/HCPCS: 80061; 83036; 84443; 99214 ==

== ENCOUNTER → 2020-09-09 08:57 | Outpatient (BNVA) | payer BC, SELFPAY | PROVIDERS: Family Provider Family Medicine; PCP Family Medicine; Visit Provider Psychiatry & Neurology Psychiatry | DX: F31.81 Bipolar II disorder (principal); G47.33 Obstructive sleep apnea (adult) (pediatric) | CPT/HCPCS: 99214 ==

== ENCOUNTER → 2020-11-10 08:26 | Outpatient (BNVA) | payer BC, SELFPAY | PROVIDERS: Family Provider Family Medicine; PCP Family Medicine; Visit Provider Psychiatry & Neurology Psychiatry | DX: F31.81 Bipolar II disorder (principal); G47.33 Obstructive sleep apnea (adult) (pediatric) | CPT/HCPCS: 99213 ==

== ENCOUNTER 2020-11-29 21:40 | Emergency (ER) | payer BC, SELFPAY ==
[2020-11-29 21:47] VITALS: BP 137/94; PULSE 68; RESP 16; TEMP 36.8; O2SAT 97; BMI 42.5
[2020-11-29] MEDS: dexamethasone 4 mg/mL INJ 6 MG IVP (22:50)
[2020-11-29] MEDS: diphenhydrAMINE 50 mg/mL SDV 1mL IVP (22:50)
[2020-11-29] MEDS: metoclopramide 5 mg/mL SDV 2 mL 10 MG IVP (22:50)
[2020-11-29] MEDS: sodium chloride 0.9% 1,000 ML 999 ML IV (22:50)
[2020-11-30 02:45] VITALS: BP 138/81; PULSE 76; RESP 16; O2SAT 99
[2020-11-30] MEDS: propofol 10 mg/mL SDV 20 mL 50 MG IVP (02:51)
[2020-11-30 02:55] VITALS: PULSE 78; RESP 15; O2SAT 97
--- NOTE | 2020-11-30 03:20 | W.ED.HA ---
HPI - Headache General: Chief Complaint: Headache Stated Complaint: extreme migraine lasting 4 weeks Time Seen by Provider: 11/29/20 21:55 History of Present Illness: HPI Narrative: Patient is a well-appearing 40-year-old female seen for headache. She states that she always has a chronic headache which she rates at 5 of 10 and locates to the occipital region. She states her headache typically extends down her neck. She has had the same headache continually for months at a time, but over the last several days it has gotten worse to where now she feels it to be a 10 of 10 pain. She denies visual disturbance, fever, pain with neck motion, nausea, vomiting. She states that her last imaging was roughly 10 years ago when she had an MRI of the brain. She denies morning nausea and vomiting, unintentional weight loss, and has no neurologic deficits. She has no other acute complaints. She has tried taking her prescription medications for headache to no avail. Review of Systems General: Reports: 10 or more systems reviewed and unremarkable except in HPI and below PFSH ED PFSH: Medical History (Updated 11/30/20 @ 03:17 by Bryan Woodward MD) Bipolar II disorder Chronic tension headaches Depression Hypertension Says when she lost some weight, the hypertension got better and she is now off medication Surgical History No history of previous surgery Social History Smoking and tobacco status: never smoked Female Reproductive History: Date of last menstrual period: 08/18/19 Physical Exam Const: COMMON NORMALS: no acute distress, patient oriented x3 and alert HENMT: COMMON NORMALS: normocephalic and atraumatic HEAD & SCALP: normocephalic and atraumatic Eye: COMMON NORMALS: Equal, round and reactive pupils present, EOMs intact bilaterally and no scleral icterus PUPIL: Yes Equal, round and reactive pupils present Neck/C-Spine: OTHER: Patient has no increase in headache or neck pain with full range of motion of the neck. Resp: COMMON NORMALS: normal respiratory effort and No retractions Cardio: COMMON NORMALS: regular rate, regular rhythm and No murmurs present (Cardio) RATE: regular rate RHYTHM: regular rhythm GI: COMMON NORMALS: Normal to inspection, nondistended, normoactive bowel sounds present, Soft to palpation and non-tender PALPATION: Yes Soft to palpation Neuro: COMMON NORMALS: patient oriented x3 SENSORIUM/ORIENTATION: Yes alert Skin: COMMON NORMALS: no rashes or lesions noted GENERAL SKIN EXAM: no rashes or lesions noted Course Vital Signs: Vital signs: Vital Signs Temperature 98.2 F 11/29/20 21:47 Pulse Rate 78 11/30/20 02:55 Respiratory Rate 15 11/30/20 02:55 Blood Pressure 138/81 11/30/20 02:45 Pulse Oximetry 97 11/30/20 02:55 MDM - Headache MDM Narrative: Medical decision making narrative: Patient remained hemodynamically stable throughout ED course. Initial treatment with IV fluids, Benadryl, Reglan, and Decadron were ineffective. Subdissociative ketamine was given in a slow drip which she states only made the headache worse. Finally, after receiving 50 mg IV slow push of propofol, headache has resolved. At no point time today the medications cause altered mental status. No sedation effect was appreciated. She will be discharged home in stable and much improved condition will with follow-up to primary care as needed. We discussed the relative merits of further imaging, and I do not feel that CT would be helpful at this time. She agrees to follow-up with primary care to discuss whether MRI of the brain is again warranted. Discharge Plan Discharge Patient Disposition: Home Clinical Impression: Headache Qualifiers: Headache type: unspecified Headache chronicity pattern: chronic headache Intractability: not intractable Qualified Code(s): R51.9 - Headache, unspecified Condition: Stable Prescriptions: No Action Latuda 80 mg tablet 80 mg PO DAILY Qty: 30 RF: 11 alprazolam [Xanax] 0.5 mg tablet 0.5 mg PO DAILY PRN (Reason: anxiety) Qty: 30 RF: 0 ondansetron HCl [Zofran] 4 mg tablet 4 mg PO Q6H PRN (Reason: nausea and vomiting) Qty: 14 RF: 0 hydrocodone-acetaminophen 5-325 mg tablet 1 - 2 tab PO Q5H PRN (Reason: pain) Qty: 30 RF: 0 Discharge Orders: Discharge ED (Routine); Ordered 11/30/20 Ordered By: Bryan Woodward Referrals: Patricia Pan, STRATEGIC PARTNER DEVELOPMENT MANAGER [Primary Care Provider] - Discharge Diet: Usual diet Discharge Activity: Resume usual activity Patient Instructions: Opioid Safety Activity Restrictions/Additional Instructions: Hopefully your headache pain level stays at a reasonable level. If you would like to pursue further imaging, advise MRI rather than CT. This can be done as an outpatient in coordination with your primary care physician. Coding Level of Care Code ED Exterior Interior Specialist for [place]
[2020-11-30 03:41] VITALS: BP 125/79; PULSE 77; RESP 17; O2SAT 98
== END 2020-11-30 03:42 | disposition home or self-care (01) ==
PROVIDERS: Emergency Provider Student in an Organized Health Care Education/Training Program; PCP Nurse Practitioner Family
DX: R51.9 Headache, unspecified (principal); I10 Essential (primary) hypertension
CPT/HCPCS: 96361; 96365; 96375; 99284; J1100; J1200; J2704; J2765; J3490; J7030

== ENCOUNTER 2020-12-14 14:12 | Outpatient (CLI) | payer BC, SELFPAY ==
--- NOTE | 2020-12-14 14:16 | MM_ITS ---
WS: [id number] BILATERAL SCREENING DIGITAL MAMMOGRAM WITH CAD HISTORY: SCREENING COMPARISON: None available. Bilateral CC and MLO views submitted. Computer aided detection analyzed. Breast composition: There are scattered areas of fibroglandular density. No suspicious masses, microc alcifications or architectural distortion. MM/[id number] IMPRESSION: BI-RADS: 1-Negative FOLLOW UP: 1 Year Follow-up
== END 2020-12-14 14:13 | disposition home or self-care (01) ==
LOC: RADSHAW 14:14
PROVIDERS: PCP Nurse Practitioner Family; Visit Provider Nurse Practitioner Family
DX: Z12.31 Encounter for screening mammogram for malignant neoplasm of breast (principal)
CPT/HCPCS: 77067

== ENCOUNTER 2022-01-03 14:04 | Outpatient (CLI) | payer BC, SELFPAY ==
--- NOTE | 2022-01-03 14:09 | MM_ITS ---
WS: [id number] BILATERAL 3D TOMOSYNTHESIS DIGITAL SCREENING MAMMOGRAPHY WITH CAD CLINICAL INFORMATION: SCREENING HISTORY: Screening mammogram. No current complaints. COMPARISON: December 14, 2020 TECHNIQUE: Bilateral CC and MLO views. FINDINGS: Scattered fibroglandular densities bilaterally. No suspicious focal mass, asymmetry, calcifications, or architectural distortion. No evidence of malignancy. MM/[id number] IMPRESSION: BI-RADS: 1-Negative FOLLOW UP: 1 Year Follow-up Recommend return to annual screening mammography.
== END 2022-01-03 14:05 | disposition home or self-care (01) ==
PROVIDERS: PCP Nurse Practitioner Family; Visit Provider Family Medicine
DX: Z12.31 Encounter for screening mammogram for malignant neoplasm of breast (principal)
CPT/HCPCS: 77063; 77067

== ENCOUNTER → 2022-05-23 16:04 | Outpatient (BNVA) | payer BC, SELFPAY | PROVIDERS: PCP Nurse Practitioner Family; Visit Provider Psychiatry & Neurology Psychiatry | DX: Z79.899 Other long term (current) drug therapy (principal) | CPT/HCPCS: 80061; 83036 ==

== ENCOUNTER 2022-10-01 14:04 | Emergency (ER) | payer OTHER, SELFPAY ==
[2022-10-01 14:17] VITALS: BP 160/95; PULSE 86; TEMP 36.4; O2SAT 97; BMI 37.9
[2022-10-01 15:19] VITALS: BP 140/81; PULSE 72; O2SAT 99
[2022-10-01] MEDS: diphenhydrAMINE 50 mg/mL SDV 1mL 25 MG IVP (15:38)
[2022-10-01] MEDS: sodium chloride 0.9% 1,000 ML 999 ML IV (15:38)
[2022-10-01] MEDS: haloperidol inj 5 mg/mL INJ 1 mL IVP ×2 (15:38→16:32)
--- NOTE | 2022-10-01 15:38 | W.ED.HA ---
HPI - Headache General: Chief Complaint: Headache Stated Complaint: headache x1 wk Time Seen by Provider: 10/01/22 15:07 History of Present Illness: 42-year-old female with chronic migraines presenting with migraine x1 week. She states this migraine came on diffusely, involving her whole head, with radiation into her jaw bilaterally, similar exactly to previous migraines. She states that she receives Botox injections for the migraines and home medications did not improve them this time. She states that her migraines typically worse in the emergency department with administration of analgesics and other medications meant to relieve her migraines. PFS ED PFSH: Medical History (Updated 10/01/22 @ 17:26 by Kvng Reyes MD) Bipolar II disorder Chronic tension headaches Depression Hypertension Says when she lost some weight, the hypertension got better and she is now off medication Psychiatric care Surgical History No history of previous surgery Social History Smoking and tobacco status: never smoked Second hand smoke exposure: No Smoking risk assessment/counseling performed?: No Alcohol intake: never Desire information about alcohol rehabilitation?: No Counseling given: No Desire information about substance/drug rehabilitation?: No Counseling given: No Physical Exam Const: COMMON NORMALS: no acute distress, average body habitus, patient oriented x3 and alert ORIENTATION/CONSCIOUSNESS: Yes oriented to person, Yes oriented to place and Yes oriented to time HENMT: COMMON NORMALS: normocephalic and atraumatic HEAD & SCALP: normocephalic and atraumatic Eye: COMMON NORMALS: Equal, round and reactive pupils present, EOMs intact bilaterally, conjunctivae normal and no scleral icterus CONJUNCTIVA: Yes conjunctivae normal PUPIL: Yes Equal, round and reactive pupils present Neck/C-Spine: COMMON NORMALS: full ROM Cardio: COMMON NORMALS: regular rate and regular rhythm RATE: regular rate RHYTHM: regular rhythm GI: COMMON NORMALS: Normal to inspection, nondistended, normoactive bowel sounds present and Soft to palpation PALPATION: Yes Soft to palpation Extremity: COMMON NORMALS: normal to inspection and full ROM Neuro: COMMON NORMALS: patient oriented x3, CN's II-XII intact bilaterally, moves all extremities, no focal motor deficits, no sensory deficits noted and gait normal SENSORIUM/ORIENTATION: Yes alert, Yes oriented to person, Yes oriented to place and Yes oriented to time COORDINATION/BALANCE: Normal rapid alternating movements of the distal upper extremity present (Neuro) SPEECH: speech normal GAIT: Yes Normal gait present COORDINATION: rapid alternating movement UE normal Psych: COMMON NORMALS: mental status grossly normal, Normal thought process present, cooperative, normal affect and speech normal SPEECH: Yes normal speech THOUGHT PROCESS: Normal thought process present Course Vital Signs: Vital signs: Vital Signs Temperature 97.5 F L 10/01/22 14:17 Pulse Rate 75 10/01/22 16:14 Blood Pressure 131/82 10/01/22 16:14 Pulse Oximetry 96 10/01/22 16:14 Oxygen Delivery Me thod 10/01/22 16:14 MDM - Headache Medical Decision Making 42-year-old female with migraine consistent with chronic migraine syndrome. Vitals nonactionable. Considered myositis, intracranial hemorrhage, vasculitis, electrolyte derangement, symptomatic migraine from infection or other organ system injury/pathology. Social determinants of health [place] Patient states complete consistent with chronic migraine syndrome without new red flag symptoms as discussed in HPI and no neurologic deficits on physical examination. Provided Haldol 10 mg intravenously in 2 separate aliquots with relief of her migraine symptoms. Also gave 25 mg of Benadryl. Reassessment patient she states her symptoms are back to baseline and she is comfortable returning home. Discharge Plan Discharge Patient Disposition: Home Clinical Impression: Migraine Condition: Stable Prescriptions: No Action baclofen 10 mg tablet 10 mg PO .HS Ubrelvy 50 mg tablet 100 mg PO DAILY PRN Trudhesa 0.725 mg/pump act. (4 mg/mL) spray,non-aerosol intranasal lamotrigine 100 mg tablet 100 mg PO BID Qty: 60 11RF Latuda 80 mg tablet 80 mg PO DAILY Qty: 30 11RF Rx Instructions: must administer with food (at least 350 calories) alprazolam [Xanax] 0.5 mg tablet 0.5 mg PO DAILY PRN (Reason: anxiety) Qty: 30 2RF Discharge Orders: Discharge ED (Routine); Ordered 10/01/22 Ordered By: Kvng Reyes Referrals: Patricia Pan REAL ESTATE ACCOUNT EXECUTIVE [Primary Care Provider] - Discharge Diet: Advance as tolerated Discharge Activity: Resume usual activity Patient Instructions: Migraine Headache (ED), Opioid Safety, Pain Management Activity Restrictions/Additional Instructions: Follow-up with your regular doctor for treatment of your chronic migraines. Return to the emergency department if your pain is out of proportion to your baseline or new symptoms emergency are concerning to you. Coding Level of Care Code ED Channel Development Director for [place]
[2022-10-01 16:14] VITALS: BP 131/82; PULSE 75; O2SAT 96
[2022-10-01 17:38] VITALS: BP 127/81; PULSE 69; RESP 14; O2SAT 97
== END 2022-10-01 17:43 | disposition home or self-care (01) ==
PROVIDERS: Emergency Provider General Practice; PCP Nurse Practitioner Family
DX: G43.909 Migraine, unspecified, not intractable, without status migrainosus (principal); I10 Essential (primary) hypertension
CPT/HCPCS: 96361; 96374; 96375; 96376; 99284; J1200; J1630; J7030

== ENCOUNTER 2022-10-26 15:12 | Emergency (ER) | payer OTHER, SELFPAY ==
[2022-10-26 15:16] VITALS: PULSE 89; RESP 18; TEMP 36.7; O2SAT 100
--- NOTE | 2022-10-26 16:28 | ED_ITS ---
Documented by User: LEISA Mo 10/27/22 07:23 HPI - Headache General: Chief Complaint: Headache Stated Complaint: Head Pain Time Seen by Provider: 10/26/22 16:10 Source: patient Mode of arrival: ambulatory Limitations: no limitations History of Present Illness: Patient is a 42-year-old female presents to ED today with complaint of a headache. Patient states she has a longstanding history of chronic migraine headaches. She states her daily/baseline headache she rates at a 6/10. She has a migraine specialist at [facility] and has been on multiple prophylactic and ab ortive medications for her headaches. She is currently rating her headache right now head and 9/10. She states there are characteristics of her pain today that feel somewhat abnormal for her migraines. She is still having sensitivity to light and sound which is fairly normal. She has no neurologic complaints or deficits. No neck pain or stiffness. No fevers. She states when she has had to come to the ED in the past they have tried migraine cocktails, IV Haldol, and even Propofol and Ketamine. She states she did not gain much relief with any of those said medications. MD elicited complaint: headache and migraine Pertinent past history: migraines Associated symptoms: Deny confusion, nausea, rash or vomiting Review of Systems GI: Denies: nausea or vomiting Musc: Denies: neck pain Skin/Breast: Denies: rash Neuro: Denies: numbness in extremities, weakness in extremities, sensory changes, difficulty walking, dizziness or confusion [facility] ED PFSH: Medical History Bipolar II disorder Chronic tension headaches Depression Hypertension Says when she lost some weight, the hypertension got better and she is now off medication Psychiatric care Surgical History No history of previous surgery Social History Smoking and tobacco status: never smoked Second hand smoke exposure: No Smoking risk assessment/counseling performed?: No Alcohol intake: never Desire information about alcohol rehabilitation?: No Counseling given: No Substance/Drug Use: never Desire information about substance/drug rehabilitation?: No Counseling given: No Physical Exam Const: COMMON NORMALS: no limitations GENERAL APPEARANCE: cooperative NUTRITIONAL APPEARANCE: obese ORIENTATION/CONSCIOUSNESS: Yes awake, Yes orie nted to person, Yes oriented to place and Yes oriented to time HENMT: COMMON NORMALS: normocephalic and atraumatic HEAD & SCALP: normal to inspection, normocephalic and atraumatic FACE & SINUS: normal facial exam and sinuses nontender Eye: GENERAL EYE: appearance normal, both eyes and all related structures Neck/C-Spine: COMMON NORMALS: full ROM, no lymphadenopathy and no meningeal signs Resp: COMMON NORMALS: clear to auscultation bilaterally AUSCULTATION: clear to auscultation bilaterally Cardio: COMMON NORMALS: regular rate and regular rhythm RATE: regular rate RHYTHM: regular rhythm Neuro: WARREN COMA SCALE: document GCS findings Warren coma scale eye opening: Spontaneous Warren coma scale verbal response: Orientated Warren coma scale motor response: Obey commands [place] coma scale total score: 15 SENSORIUM/ORIENTATION: Yes oriented to person, Yes oriented to place and Yes oriented to time MENINGEAL SIGNS: Yes no meningeal signs Skin: COMMON NORMALS: no rashes or lesions noted GENERAL SKIN EXAM: no rashes or lesions noted Course ED course: Patient states she has tried many different medications for her headaches. When she has had to come to the ED she has not had good success with treating her migraine exacerbations. She states she has been given typical migraine cocktails, IV Haldol, and even Propofol and Ketamine without much success. I asked patient if she has ever tried DHE/Reglan to which she responded no. This will be ordered for patient and we will reassess her pain afterwards. Care will be transferred to Winthrop Frye, [facility] at shift change. ES Vital Signs: Vital signs: Vital Signs Temperature 98.0 F 10/26/22 15:16 Pulse Rate 89 10/26/22 15:16 Respiratory Rate 18 10/26/22 15:16 Pulse Oximetry 100 10/26/22 15:16 Oxygen Delivery Me thod Room Air 10/26/22 15:16 Discharge Plan Discharge Patient Disposition: Home Clinical Impression: Migraine Condition: Stable Prescriptions: No Action baclofen 10 mg tablet 10 mg PO .HS Ubrelvy 50 mg tablet 100 mg PO DAILY PRN Trudhesa 0.725 mg/pump act. (4 mg/mL) spray,non-aerosol intranasal lamotrigine 100 mg tablet 100 mg PO BID Qty: 60 11RF Latuda 80 mg tablet 80 mg PO DAILY Qty: 30 11RF Rx Instructions: must administer with food (at least 350 calories) alprazolam [Xanax] 0.5 mg tablet 0.5 mg PO DAILY PRN (Reason: anxiety) Qty: 30 2RF Discharge Orders: Discharge ED (Routine); Ordered 10/26/22 Ordered By: Gi Frye Referrals: Patricia Pan FNP [Primary Care Provider] - Discharge Diet: Usual diet Discharge Activity: Resume usual activity Patient Instructions: Migraine Headache (ED) Activity Restrictions/Additional Instructions: Continue medication regimen as previously prescribed for home use. Follow-up with primary care provider. Return to the ER for new or worsening symptoms. Coding Level of Care Code ED Low Pressure Boiler Tender for [place] [facility] Documented by User: CATRACHO Costello 10/27/22 02:46 HPI - Headache General: Chief Complaint: Headache Stated Complaint: Head Pain Time Seen by Provider: 10/26/22 16:10 History of Present Illness: Associated symptoms: Deny chest pain or fever(s) Review of Systems Const: Denies: fever(s), chills or body aches Eyes: Reports: photophobia Card: Denies: chest pain or palpitations Resp: Denies: dyspnea, productive cough or non-productive cough Neuro: Reports: headache(s); Denies: lack of coordination, behavioral changes or Slurred speech present PFSH ED PFSH: Medical History Bipolar II disorder Chronic tension headaches Depression Hypertension Says when she lost some weight, the hypertension got better and she is now off medication Psychiatric care Surgical History No history of previous surgery Social History Smoking and tobacco status: never smoked Second hand smoke exposure: No Smoking risk assessment/counseling performed?: No Alcohol intake: never Desire information about alcohol rehabilitation?: No Counseling given: No Substance/Drug Use: never Desire information about substance/drug rehabilitation?: No Counseling given: No Physical Exam Const: COMMON NORMALS: no acute distress, patient oriented x3 and alert Resp: COMMON NORMALS: normal respiratory effort and No use of accessory muscles Neuro: COMMON NORMALS: patient oriented x3, CN's II-XII intact bilaterally, moves all extremities, no focal motor deficits and no sensory deficits noted SENSORIUM/ORIENTATION: Yes alert Course Vital Signs: Vital signs: Vital Signs Temperature 98.0 F 10/26/22 15:16 Pulse Rate 89 10/26/22 15:16 Respiratory Rate 18 10/26/22 15:16 Pulse Oximetry 100 10/26/22 15:16 Oxygen Delivery Me thod Room Air 10/26/22 15:16 MDM - Headache Medical Decision Making I assumed care of patient at 1700. I agree with the HPI originally taken by Jennifer Gagnon. At 1745 I reevaluated patient after receiving the DHE 1 and Reglan. Patient was sitting at the edge of the bed smiling. She stated that she was much better and her pain was actually on her lower end of her normal baseline. She rates her pain at a 5 on a 0-to-10 scale and states normally it is 6-7 solid. Patient is requesting to be discharged home at this time. Physic al exam was completed. Patient is discharged home in stable condition. Discharge Plan Discharge Patient Disposition: Home Clinical Impression: Migraine Condition: Stable Prescriptions: No Action baclofen 10 mg tablet 10 mg PO .HS Ubrelvy 50 mg tablet 100 mg PO DAILY PRN Trudhesa 0.725 mg/pump act. (4 mg/mL) spray,non-aerosol intranasal lamotrigine 100 mg tablet 100 mg PO BID Qty: 60 11RF Latuda 80 mg tablet 80 mg PO DAILY Qty: 30 11RF Rx Instructions: must administer with food (at least 350 calories) alprazolam [Xanax] 0.5 mg tablet 0.5 mg PO DAILY PRN (Reason: anxiety) Qty: 30 2RF Discharge Orders: Discharge ED (Routine); Ordered 10/26/22 Ordered By: Gi Frye Referrals: Patricia Pan FNP [Primary Care Provider] - Discharge Diet: Usual diet Discharge Activity: Resume usual activity Patient Instructions: Migraine Headache (ED) Activity Restrictions/Additional Instructions: Continue medication regimen as previously prescribed for home use. Follow-up with primary care provider. Return to the ER for new or worsening symptoms. Coding Level of Care Code ED Low Pressure Boiler Tender for [place]
[2022-10-26] MEDS: dihydroergotamine 1 mg/mL Inj IVP (16:42)
[2022-10-26] MEDS: metoclopramide 5 mg/mL SDV 2 mL 10 MG IVP (16:42)
== END 2022-10-26 18:23 | disposition home or self-care (01) ==
PROVIDERS: Emergency Provider Physician Assistant; PCP Nurse Practitioner Family
DX: G43.909 Migraine, unspecified, not intractable, without status migrainosus (principal); I10 Essential (primary) hypertension
CPT/HCPCS: 96374; 96375; 99284; J1110; J2765

== ENCOUNTER 2023-01-18 08:41 | Outpatient (CLI) | payer OTHER, SELFPAY ==
--- NOTE | 2023-01-18 08:59 | MM_ITS ---
WS: [id number] Bilateral screening 3D tomosynthesis digital mammogram, 01/18/2023 Clinical Data: SCREENING Comparison: 01/03/2022, 12/14/2020 Findings: The breast parenchymal pattern shows fibroglandular tissue. No spiculated masses or clustered calcifi cations are seen. There are no secondary signs of carcinoma. MM/[place] [id number] Impression: 1. Negative bilateral mammogram unchanged. 2. Recommend annual screening mammograms. BIRADS: 1-Negative FOLLOW UP: 1 Year Follow-up The CAD gas meter checker was used.
== END 2023-01-18 08:42 | disposition home or self-care (01) ==
LOC: MOBLMAM 08:50 → RAD 09:39
PROVIDERS: PCP Nurse Practitioner Family; Visit Provider Nurse Practitioner Family
DX: Z12.31 Encounter for screening mammogram for malignant neoplasm of breast (principal)
CPT/HCPCS: 77063; 77067

== ENCOUNTER → 2023-05-02 11:12 | Outpatient (BNVA) | payer OTHER, SELFPAY | PROVIDERS: PCP Nurse Practitioner Family; Visit Provider Psychiatry & Neurology Psychiatry | DX: F31.81 Bipolar II disorder (principal); Z79.899 Other long term (current) drug therapy | CPT/HCPCS: 80061; 83036 ==

== ENCOUNTER 2023-05-12 15:38 | Emergency (ER) | payer OTHER, SELFPAY ==
[2023-05-12 15:40] VITALS: BP 143/89; PULSE 81; RESP 18; TEMP 36.6; O2SAT 100; BMI 47.8
--- NOTE | 2023-05-12 15:57 | CTR_ITS ---
PROCEDURE INFORMATION: Exam: CT Head Without Contrast Exam date and time: 05/12/2023 4:06 PM Age: 43 years old Clinical indication: Dizziness and speech disturbance; Dysphasia; Additional info: AMS TECHNIQUE: Imaging protocol: Computed tomography of the head without contrast. Radiation optimization: All CT scans at this facility use at least one of these dose optimization techniques: automated exposure control; mA and/or kV adjustment per patient size (includes targeted exams where dose is matched to clinical indication); or iterative reconstruction. REPORTING DATA: Count of CT and Cardiac NM exams in prior 12 months: This patient has received 0 known CTs and 0 known cardiac nuclear medicine studies in the 12 months prior to the current study. COMPARISON: No relevant prior studies available. RADIATION DOSE METRICS: Total DLP (mGy-cm): 993.78 FINDINGS: Brain: No midline shift. Ventricles, cisterns, and sulci are normal. No mass, acute infarct, hemorrhage, or extraaxial fluid collection. Cerebral ventricles: No ventriculomegaly. Paranasal sinuses: Visualized sinuses are unremarkable. No fluid levels. Mastoid air cells: Visualized mastoid air cells are well aerated. Bones/joints: Unremarkable. No acute fracture. Soft tissues: Unremarkable. CT/CT head wo con* [id number] IMPRESSION: No acute intracranial abnormality.
--- NOTE | 2023-05-12 15:59 | XRR_ITS ---
PROCEDURE INFORMATION: Exam: XR Chest Exam date and time: 05/12/2023 4:09 PM Age: 43 years old Clinical indication: Patient HX: AMS; HTN; Trouble forming sentence TECHNIQUE: Imaging protocol: Radiologic exam of the chest. Views: 1 view. COMPARISON: MR MRCP [id number] 08/11/2019 10:57 AM FINDINGS: Lungs: Unremarkable. No consolidation. Pleural spaces: Unremarkable. No pleural effusion. No pneumothorax. Heart/Mediastinum: Unremarkable. No cardiomegaly. Bones/joints: Unremarkable. XR/XR chest 1V portable [id number] IMPRESSION: No acute findings.
--- NOTE | 2023-05-12 16:02 | W.ED.AMS ---
HPI - Altered Mental Status General: Chief Complaint: Altered Mental Status Stated Complaint: AMS Time Seen by Provider: 05/12/23 15:39 Source: patient Mode of arrival: ambulatory History of Present Illness: 43-year-old female presents emergency room complaining that she is having difficulty speaking. She currently has a headache which she states she chronically has a headache they were in the midst of changing some psychiatric medications for but they have not started on 9 1 or the tapered off of the old 1. She usually sees Dr. Ricketts at [facility]. No recent head trauma. She is awake and alert answers questions appropriately but is telegraphic speech follows commands. No localizing changes. Onset (ago): minute(s) Review of Systems Const: Denies: fever(s) or chills Card: Denies: chest pain Resp: Denies: dyspnea GI: Denies: abdominal pain : Denies: dysuria, urinary frequency or urinary urgency Musc: Denies: neck pain or back pain Skin/Breast: Denies: rash PFSH ED PFSH: Medical History Bipolar II disorder Chronic tension headaches Depression Hypertension Says when she lost some weight, the hypertension got better and she is now off medication Psychiatric care Surgical History No history of previous surgery Social History Smoking and tobacco/nicotine status: never used tobacco/nicotine Second hand smoke exposure: No Alcohol intake: never Substance/Drug Use: never Physical Exam Const: COMMON NORMALS: no acute distress ORIENTATION/CONSCIOUSNESS: Yes awake HENMT: COMMON NORMALS: normocephalic, atraumatic and hearing grossly normal bilaterally HEAD & SCALP: normocephalic and atraumatic Resp: COMMON NORMALS: normal respiratory effort, No retractions, No use of accessory muscles and clear to auscultation bilaterally AUSCULTATION: clear to auscultation bilaterally Cardio: COMMON NORMALS: regular rate, regular rhythm and No murmurs present (Cardio) RATE: regular rate RHYTHM: regular rhythm GI: COMMON NORMALS: Soft to palpation and No hepatosplenomegaly present AUSCULTATION: Yes normoactive bowel sounds PALPATION: Yes Soft to palpation, No Tenderness to palpation present (GI), No Guarding due to palpation present (GI) and Yes No hepatosplenomegaly present Extremity: COMMON NORMALS: normal to inspection, capillary refill normal, no clubbing, cyanosis or edema, no calf tenderness and no pedal edema Skin: COMMON NORMALS: no rashes or lesions noted GENERAL SKIN EXAM: no rashes or lesions noted Course Vital Signs: Vital signs: Vital Signs Temperature 97.8 F 05/12/23 15:40 Pulse Rate 81 05/12/23 15:40 Respiratory Rate 18 05/12/23 15:40 Blood Pressure 143/89 05/12/23 15:40 Pulse Oximetry 100 05/12/23 15:40 Oxygen Delivery Me thod Room Air 05/12/23 15:40 MDM - Altered Mental Status Medical Decision Making All of her symptoms have completely resolved. She is completely awake talking normally now. Discussing with patient she has had similar type episodes before. Appears to be a functional disorder Labs and imaging are unremarkable we will have her follow-up with primary care or neurology return if she has recurrence or other problems. Differential Diagnosis Likely altered mental status, delirium, hypoglycemia, hyponatremia, subarachnoid hemorrhage and sepsis Medical Records I reviewed the patient's medical records. Lab Data I reviewed the patient's lab results. 05/12/23 16:29 05/12/23 16:[address] 05/12/23 15:57 IMPRESSION: No acute intracranial abnormality. Chest X-Ray 05/12/23 15:59 IMPRESSION: No acute findings. Laboratory Results WBC 10.57 10^3/uL (3.29-11.43) 05/12/23 16: RBC 5.13 10^6/uL (3.85-5.65) 05/12/23 16:29 Hgb 15.50 g/dL (11.27-16.99) 05/12/23 16: Hct 47.0 % (36-47) 05/12/23 16: MCV 91.6 fl (85-98) 05/12/23 16:29 MCH 30.2 pg (27-33) 05/12/23 16: MCHC 33.0 g/dL (30-55) 05/12/23 16: RDW 13.4 % (12.1-15.1) 05/12/23 16:29 Plt Count 176 10^3/cmm (157-399) 05/12/23 16: MPV 8.5 fL (7.4-10.4) 05/12/23 16: Neut % (Auto) 65.8 % 05/12/23 16: Lymph % (Auto) 25.1 % 05/12/23 16: [place] % (Auto) 6.0 % 05/12/23 16: Eos % (Auto) 2.0 % 05/12/23 16: Baso % (Auto) 0.6 % 05/12/23 16: Neut # (Auto) 6.97 10^3/uL (1.8-7.7) 05/12/23 16: Lymph # (Auto) 2.7 10^3/uL (0.8-4.8) 05/12/23 16: [place] # (Auto) 0.6 10^3/uL (0.2-0.9) 05/12/23 16: Eos # (Auto) 0.2 10^3/uL (0.0-0.8) 05/12/23 16: Baso # (Auto) 0.1 10^3/uL (0.0-0.1) 05/12/23 16: Nucleated RBC % (auto) 0 % 05/12/23: Nucleated RBCs # 0.0 /100WBC 05/12/23 16: Sodium 138 mmol/L (136-145) 05/12/23 16: Potassium 4.1 mmol/L (3.5-5.1) 05/12/23 16: Chloride 108 mmol/L (98-107) H 05/12/23 16: Carbon Dioxide 21 mmol/L (22-29) L 05/12/23 16: Anion Gap 13.1 (5-19) 05/12/23 16: BUN 10 mg/dL (6-20) 05/12/23 16: Creatinine 0.8 mg/dL (0.5-0.9) 05/12/23 16: GFR Calculation 77.9 mL/min (90-130) L 05/12/23 16: Glucose 107 mg/dL (65-115) 05/12/23 16: Calculated Osmolality 286 mOsm/kg (285-295) 05/12/23 16:29 Calcium 9.7 mg/dL (8.5-10.5) 05/12/23 16:29 Total Bilirubin 0.6 mg/dL (0.15-1.2) 05/12/23 16:29 AST 11 U/L (0-32) 05/12/23 16:29 ALT 10 U/L (0-33) 05/12/23 16:29 Alkaline Phosphatase 71 U/L (35-105) 05/12/23 16:29 Total Protein 6.2 g/dL (6.6-8.7) L 05/12/23 16:29 Albumin 3.9 g/dL (3.5-5.2) 05/12/23 16:29 Globulin 2.3 g/dL (1.3-4.6) 05/12/23 16:29 Urine Color Colorless (Yellow) 05/12/23 16:35 Urine Appearance Clear (CLEAR) 05/12/23 16:35 Urine pH 7 (5-7) 05/12/23 16:35 Ur Specific [place] 1.005 (1.005-1.030) 05/12/23 16:35 Urine Protein Neg (Negative) 05/12/23 16:35 Urine Glucose (UA) Norm (Normal) 05/12/23 16:35 Urine Ketones Negative (Negative) 05/12/23 16:35 Urine Blood Neg (Negative) 05/12/23 16:35 Urine Nitrate Negative (Negative) 05/12/23 16:35 Urine Bilirubin Neg (Negative) 05/12/23 16:35 Urine Urobilinogen Norm mg/dL (Negative) 05/12/23 16:35 Ur Leukocyte Esterase Negative (Negative) 05/12/23 16:35 Urine Opiates Screen Negative ng/mL (Negative) 05/12/23 16:35 Ur Barbiturates Screen Negative ng/mL (Negative) 05/12/23 16:35 Ur Phencyclidine Scrn Negative ng/mL (Negative) 05/12/23 16:35 Ur Amphetamines Screen Negative ng/mL (Negative) 05/12/23 16:35 U Benzodiazepines Scrn Negative ng/mL (Negative) 05/12/23 16:35 Urine Cocaine Screen Negative ng/mL (Negative) 05/12/23 16:35 U Marijuana (THC) Screen Negative ng/mL (Negative) 05/12/23 16:35 Ethyl Alcohol < 10 mg/dL (0-10) 05/12/23 16:29 All radiology interpretation(s) finalized by discharge Discharge Plan Discharge Patient Disposition: Home Clinical Impression: Functional neurologic complaint, Bipolar II disorder Condition: Stable Prescriptions: No Action lamotrigine 100 mg tablet 100 mg PO BID Qty: 60 11RF gabapentin 100 mg capsule 200 mg PO TID alprazolam [Xanax] 0.5 mg tablet 0.5 mg PO DAILY PRN (Reason: anxiety) Qty: 30 2RF quetiapine [Seroquel XR] 50 mg tablet extended release 24 hr See Rx Instructions PO .COMPLEX Qty: 7 0RF Rx Instructions: Take one tab by mouth the first night, two tabs by mouth the 2nd night, and 4 tabs by mouth the third night. quetiapine [Seroquel XR] 300 mg tablet extended release 24 hr 300 mg PO DAILY Qty: 30 0RF Rx Instructions: Start on night 4 of the titration. latanoprost 0.005 % drops 1 drp ophthalmic (eye) QPM propranolol 120 mg capsule,extended release 24 hr 120 mg PO DAILY Discharge Orders: Discharge ED (Routine); Ordered 05/12/23 Ordered By: Papito Pendleton Referrals: Patricia Pan FNP [Primary Care Provider] - Patient Instructions: Subarachnoid Hemorrhage (GEN), Pain Management Activity Restrictions/Additional Instructions: Thank you for choosing [facility] for your healthcare needs today. Please realize this is an emergency room and that we are providing you with a medical screening exam and this may not be complete and all inclusive of all the testing and or work up that you may need to determine your ailment or severity of your illness. It is very important that you follow up as instructed or that you return to the Emergency Department should you have concerns or if your condition changes or worsens in any way. CT of your head was negative. The remainder of your exam and labs were negative. Recommend that you follow-up with Dr. Ricketts. Suspect this is a functional episode may be related to your headaches. We will also have you see neurology. Coding Level of Care Code ED Project Technician for [place]
[2023-05-12 16:44] LABS: Basophils # 0.1 10^3/uL (0.0-0.1); Basophils % 0.6 %; Eosinophils # 0.2 10^3/uL (0.0-0.8); Lymphocytes # 2.7 10^3/uL (0.8-4.8); Lymphocytes % 25.1 %; Mean Corpuscular Hemoglobin 30.2 pg (27-33); Mean Corpuscular Volume 91.6 fl (85-98); Mean Platelet Volume 8.5 fL (7.4-10.4); Monocytes # 0.6 10^3/uL (0.2-0.9); Neutrophils # 6.97 10^3/uL (1.8-7.7); Neutrophils % 65.8 %; Nucleated Red Blood Cells % 0 %; Platelet Count 176 10^3/cmm (157-399); Red Blood Count 5.13 10^6/uL (3.85-5.65); Red Cell Distribution Width 13.4 % (12.1-15.1); White Blood Count 10.57 10^3/uL (3.29-11.43)
[2023-05-12 16:45] LABS: Add Urine Microscopic? NO; Charge for UA Resulting for Rev
[2023-05-12 16:49] LABS: Bilirubin Urine Neg (Negative); Blood Urine Neg (Negative); Glucose Urine UA Norm (Normal); Ketones Urine Negative (Negative); Leukocyte Esterase Urine Negative (Negative); Nitrate Urine Negative (Negative); Protein Urine Neg (Negative); Specific Gravity, Urine 1.005 (1.005-1.030); Urine Appearance Clear (CLEAR); Urine Color Colorless (Yellow); Urobilinogen Urine Norm (Negative); pH Urine 7 (5-7)
[2023-05-12 16:57] LABS: Amphetamines Screen Urine Negative (Negative); Barbiturates Screen Urine Negative (Negative); Benzodiazepines Screen Urine Negative (Negative); Cocaine Screen Urine Negative (Negative); Opiate Screen Urine Negative (Negative); PCP Screen Urine Negative (Negative); THC Screen Urine Negative (Negative)
[2023-05-12 17:00] LABS: Alanine Aminotransferase 10 U/L (0-33); Albumin Level 3.9 g/dL (3.5-5.2); Alkaline Phosphatase 71 U/L (35-105); Anion Gap 13.1 (5-19); Aspartate Amino Transferase 11 U/L (0-32); Blood Urea Nitrogen 10 mg/dL (6-20); Calcium 9.7 mg/dL (8.5-10.5); Carbon Dioxide 21 mmol/L (22-29); Chloride 108 mmol/L (98-107); Globulin 2.3 g/dL (1.3-4.6); Glomerular Filtration Rate 77.9 mL/min (90-130); Glucose 107 mg/dL (65-115); Osmolality Calculated 286 mOsm/kg (285-295); Potassium 4.1 mmol/L (3.5-5.1); Sodium 138 mmol/L (136-145); Total Bilirubin 0.6 mg/dL (0.15-1.2); Total Protein 6.2 g/dL (6.6-8.7)
[2023-05-12 17:03] LABS: Alcohol Level < 10 mg/dL (0-10)
[2023-05-12] MEDS: LORazepam 2 mg/mL INJ 1 mL IVP (17:38)
[2023-05-12] MEDS: ketorolac 30 mg/mL INJ IVP (17:38)
== END 2023-05-12 18:14 | disposition home or self-care (01) ==
PROVIDERS: Emergency Provider Family Medicine; PCP Nurse Practitioner Family
DX: R29.818 Other symptoms and signs involving the nervous system (principal); F31.81 Bipolar II disorder; I10 Essential (primary) hypertension
CPT/HCPCS: 36415; 70450; 71045; 80053; 80306; 80307; 81003; 85025; 96374; 96375; 99285; J1885; J2060

== ENCOUNTER → 2023-09-20 10:30 | Outpatient (BNVA) | payer OTHER, SELFPAY | PROVIDERS: PCP Nurse Practitioner Family; Visit Provider Psychiatry & Neurology Psychiatry | DX: Z79.899 Other long term (current) drug therapy (principal); F31.81 Bipolar II disorder; F43.0 Acute stress reaction; E66.01 Morbid (severe) obesity due to excess calories; Z68.43 Body mass index [BMI] 50.0-59.9, adult | CPT/HCPCS: 80053; 84443; 85025 ==

== ENCOUNTER 2023-09-26 09:46 | Outpatient (CLI) | payer OTHER, SELFPAY ==
[2023-09-26 11:46] LABS: Lithium 0.4 mmol/L (0.6-1.2)
== END 2023-09-26 09:47 | disposition home or self-care (01) ==
LOC: LAB 09:48
PROVIDERS: PCP Nurse Practitioner Family; Visit Provider Psychiatry & Neurology Psychiatry
DX: Z79.899 Other long term (current) drug therapy (principal)
CPT/HCPCS: 36415; 80178

== ENCOUNTER → 2023-09-28 16:09 | Outpatient (BNVA) | payer OTHER, SELFPAY | PROVIDERS: PCP Nurse Practitioner Family; Visit Provider Psychiatry & Neurology Psychiatry | DX: F31.81 Bipolar II disorder (principal) | CPT/HCPCS: 80178 ==

== ENCOUNTER → 2023-10-02 08:41 | Outpatient (BNVA) | payer OTHER, SELFPAY | PROVIDERS: PCP Nurse Practitioner Family; Visit Provider Psychiatry & Neurology Psychiatry | DX: Z79.899 Other long term (current) drug therapy (principal); F31.81 Bipolar II disorder; F43.0 Acute stress reaction | CPT/HCPCS: 80178 ==

== ENCOUNTER → 2023-10-08 10:42 | Outpatient (BNVA) | payer SELFPAY | PROVIDERS: PCP Nurse Practitioner Family; Visit Provider Psychiatry & Neurology Psychiatry | DX: Z79.899 Other long term (current) drug therapy (principal) | CPT/HCPCS: 80178; 84443 ==

== ENCOUNTER 2023-10-15 15:31 | Emergency (ER) | payer OTHER, SELFPAY ==
[2023-10-15 15:48] VITALS: BP 152/85; PULSE 77; RESP 16; TEMP 36.9; O2SAT 100; BMI 52.2
[2023-10-15 16:13] VITALS: RESP 18; O2SAT 98
--- NOTE | 2023-10-15 16:15 | CTR_ITS ---
PROCEDURE INFORMATION: Exam: CT Head Without Contrast Exam date and time: 10/15/2023 4:21 PM Age: 43 years old Clinical indication: Other: Weakness, PT states feels like a panic attack TECHNIQUE: Imaging protocol: Computed tomography of the head without contrast. Axial, coronal and sagittal reformatted images were created and reviewed. Radiation optimization: All CT scans at this facility use at least one of these dose optimization techniques: automated exposure control; mA and/or kV adjustment per patient size (includes targeted exams where dose is matched to clinical indication); or iterative reconstruction. COMPARISON: CT head wo con* [id number] 05/12/2023 4:06 PM RADIATION DOSE METRICS: Total DLP (mGy-cm): 1005.4 FINDINGS: Brain: No CT evidence of acute intracranial hemorrhage or acute territorial infarction. No significant mass effect or midline shift. Basal cisterns patent. Cerebral ventricles: Normal in size and configuration. Paranasal sinuses: Unremarkable. No fluid levels. Mastoid air cells: Grossly unremarkable. Bones/joints: No acute osseous abnormality. Soft tissues: Grossly unremarkable. CT/CT head wo con* [id number] IMPRESSION: No CT evidence of acute intracranial pathology.
--- NOTE | 2023-10-15 16:15 | XRR_ITS ---
PROCEDURE INFORMATION: Exam: XR Chest Exam date and time: 10/15/2023 4:19 PM Age: 43 years old Clinical indication: Other: Anxiety; Additional info: Weakness TECHNIQUE: Imaging protocol: Radiologic exam of the chest. Views: 1 view. COMPARISON: CR XR chest 1V portable [id number] 05/12/2023 4:09 PM FINDINGS: Lungs: Unremarkable. No consolidation. Pleural spaces: Unremarkable. No pleural effusion. No pneumothorax. Heart/Mediastinum: Unremarkable. No cardiomegaly. Bones/joints: Unremarkable. XR/XR chest 1V portable [id number] IMPRESSION: No acute radiographic findings.
[2023-10-15 16:24] LABS: Add Urine Microscopic? NO; Charge for UA Resulting for Rev
[2023-10-15 16:27] LABS: Bilirubin Urine Neg (Negative); Blood Urine Neg (Negative); Glucose Urine UA Norm (Normal); Ketones Urine Negative (Negative); Nitrate Urine Negative (Negative); Protein Urine Neg (Negative); Urine Appearance Clear (CLEAR); Urine Color Straw (Yellow); Urobilinogen Urine Norm (Negative); pH Urine 7 (5-7)
--- NOTE | 2023-10-15 16:27 | W.ED.ANXIETY ---
HPI - Anxiety General: Chief Complaint: Anxiety Stated Complaint: panic attack Time Seen by Provider: 10/15/23 16:06 Source: patient Mode of arrival: ambulatory Limitations: no limitations History of Present Illness: 43-year-old female who states that over the last days she is just felt slow states she has a history anxiety she is on different meds she has had issues like this in the past she states that she just feels like she has slow appliances been moving slow has had some general malaise she has no suicidal homicidal thoughts denies any chest pains or headaches or fevers or recent illness. Denies any worse improved factors. Associated symptoms: Reports malaise; Deny chest pain, chills, fever(s), headache(s), nausea or vomiting Review of Systems Const: Reports: fatigue and malaise; Denies: fever(s), chills, body aches or change in appetite Eyes: Denies: blurry vision or eye discomfort ENMT: Denies: throat pain or dental pain Card: Denies: chest pain Resp: Denies: dyspnea GI: Denies: abdominal pain, nausea, vomiting or diarrhea Musc: Denies: neck pain or back pain Skin/Breast: Denies: rash Neuro: Denies: headache(s) Psych: Denies: depression PFSH ED PFSH: Medical History Psychiatric care Hypertension Says when she lost some weight, the hypertension got better and she is now off medication Chronic tension headaches Depression Surgical History No history of previous surgery Social History Smoking and tobacco/nicotine status: never used tobacco/nicotine Second hand smoke exposure: No Alcohol intake: never Substance/Drug Use: never Physical Exam Const: COMMON NORMALS: no acute distress, patient oriented x3 and healthy appearing HENMT: COMMON NORMALS: normocephalic and atraumatic HEAD & SCALP: normocephalic and atraumatic Eye: COMMON NORMALS: Equal, round and reactive pupils present and EOMs intact bilaterally PUPIL: Yes Equal, round and reactive pupils present Neck/C-Spine: COMMON NORMALS: full ROM and supple Chest: COMMONS NORMALS: normal inspection of the chest Resp: COMMON NORMALS: normal respiratory effort, No retractions, No use of accessory muscles and clear to auscultation bilaterally AUSCULTATION: clear to auscultation bilaterally Cardio: COMMON NORMALS: regular rate, regular rhythm and No murmurs present (Cardio) RATE: regular rate RHYTHM: regular rhythm Extremity: COMMON NORMALS: normal to inspection and full ROM Neuro: COMMON NORMALS: patient oriented x3, moves all extremities and no focal motor deficits Psych: COMMON NORMALS: mental status grossly normal, Normal thought process present and cooperative THOUGHT PROCESS: Normal thought process present Skin: COMMON NORMALS: no rashes or lesions noted and no wounds GENERAL SKIN EXAM: no rashes or lesions noted Course Vital Signs: Vital signs: Vital Signs Temperature 98.4 F 10/15/23 15:48 Pulse Rate 77 10/15/23 15:48 Respiratory Rate 18 10/15/23 16:13 Blood Pressure 152/85 10/15/23 15:48 Pulse Oximetry 98 10/15/23 16:13 Oxygen Delivery Me thod Room Air 10/15/23 16:13 MDM - Anxiety Medical Decision Making Patient presents here with some fatigue blood work here is all normal she is well-appearing here she stable for discharge follow-up with PCP return if worsening. Medical Records I reviewed the patient's medical records. Lab Data I reviewed the patient's lab results. 10/15/23 17:46 10/15/23 17:46 Radiology Impressions Chest X-Ray 10/15/23 16:15 IMPRESSION: No acute radiographic findings. Head CT 10/15/23 16:15 IMPRESSION: No CT evidence of acute intracranial pathology. Laboratory Results WBC 14.29 10^3/uL (3.29-11.43) H 10/15/23 17:46 RBC 5.63 10^6/uL (3.85-5.65) 10/15/23 17:46 Hgb 16.50 g/dL (11.27-16.99) 10/15/23 17:46 Hct 51.0 % (36-47) H 10/15/23 17:46 MCV 90.6 fl (85-98) 10/15/23 17:46 MCH 29.3 pg (27-33) 10/15/23 17:46 MCHC 32.4 g/dL (30-55) 10/15/23 17:46 RDW 14.7 % (12.1-15.1) 10/15/23 17:46 Plt Count 250 10^3/cmm (157-399) 10/15/23 17:46 MPV 8.5 fL (7.4-10.4) 10/15/23 17:46 Neut % (Auto) 72.1 % 10/15/23 17:46 Lymph % (Auto) 19.8 % 10/15/23 17:46 [place] % (Auto) 5.2 % 10/15/23 17:46 Eos % (Auto) 2.0 % 10/15/23 17:46 Baso % (Auto) 0.6 % 10/15/23 17:46 Neut # (Auto) 10.29 10^3/uL (1.8-7.7) H 10/15/23 17:46 Lymph # (Auto) 2.8 10^3/uL (0.8-4.8) 10/15/23 17:46 [place] # (Auto) 0.8 10^3/uL (0.2-0.9) 10/15/23 17:46 Eos # (Auto) 0.3 10^3/uL (0.0-0.8) 10/15/23 17:46 Baso # (Auto) 0.1 10^3/uL (0.0-0.1) 10/15/23 17:46 Nucleated RBC % (auto) 0 % 10/15/23 17:46 Nucleated RBCs # 0.0 /100WBC 10/15/23 17:46 Sodium 144 mmol/L (136-145) 10/15/23 17:46 Potassium 4.3 mmol/L (3.5-5.1) 10/15/23 17:46 Chloride 112 mmol/L (98-107) H 10/15/23 17:46 Carbon Dioxide 24 mmol/L (22-29) 10/15/23 17:46 Anion Gap 12.3 (5-19) 10/15/23 17:46 BUN 7 mg/dL (6-20) 10/15/23 17:46 Creatinine 0.8 mg/dL (0.5-0.9) 10/15/23 17:46 GFR Calculation 77.9 mL/min (90-130) L 10/15/23 17:46 Glucose 93 mg/dL (65-115) 10/15/23 17:46 Calculated Osmolality 296 mOsm/kg (285-295) H 10/15/23 17:46 Calcium 10.9 mg/dL (8.5-10.5) H 10/15/23 17:46 Magnesium 2.5 mg/dL (1.7-2.3) H 10/15/23 17:46 Total Bilirubin 0.4 mg/dL (0.15-1.2) 10/15/23 17:46 AST 13 U/L (0-32) 10/15/23 17:46 ALT 14 U/L (0-33) 10/15/23 17:46 Alkaline Phosphatase 89 U/L (35-105) 10/15/23 17:46 Total Protein 6.9 g/dL (6.6-8.7) 10/15/23 17:46 Albumin 4.3 g/dL (3.5-5.2) 10/15/23 17:46 Globulin 2.6 g/dL (1.3-4.6) 10/15/23 17:46 TSH 2.28 uIU/mL (0.27-4.20) 10/15/23 17:46 HCG, Qual Negative (Negative) 10/15/23 17:46 Urine Color Straw (Yellow) 10/15/23 16:18 Urine Appearance Clear (CLEAR) 10/15/23 16:18 Urine pH 7 (5-7) 10/15/23 16:18 Ur Specific [place] 1.000 (1.005-1.030) L 10/15/23 16:18 Urine Protein Neg (Negative) 10/15/23 16:18 Urine Glucose (UA) Norm (Normal) 10/15/23 16:18 Urine Ketones Negative (Negative) 10/15/23 16:18 Urine Blood Neg (Negative) 10/15/23 16:18 Urine Nitrate Negative (Negative) 10/15/23 16:18 Urine Bilirubin Neg (Negative) 10/15/23 16:18 Urine Urobilinogen Norm mg/dL (Negative) 10/15/23 16:18 Ur Leukocyte Esterase Negative (Negative) 10/15/23 16:18 [place] 0.6 mmol/L (0.6-1.2) 10/15/23 17:46 All radiology interpretation(s) finalized by discharge EKG Data EKG 1: I personally reviewed and interpreted this EKG as follows: EKG interpretation date: 10/15/23 EKG interpretation time: 16:30 Interpretation: Chest X-Ray 10/15/23 16:15 IMPRESSION: No acute radiographic findings. Head CT 10/15/23 16:15 IMPRESSION: No CT evidence of acute intracranial pathology. nsr hr [address] or t wave abnormalities qrs 89 qtc 376 Other EKG comments: Chest X-Ray 10/15/23 16:15 IMPRESSION: No acute radiographic findings. Head CT 10/15/23 16:15 IMPRESSION: No CT evidence of acute intracranial pathology. Discharge Plan Discharge Patient Disposition: Home Clinical Impression: Fatigue Condition: Stable Prescriptions: No Action lamotrigine 100 mg tablet 100 mg PO BID Qty: 60 11RF alprazolam [Xanax] 0.5 mg tablet 0.5 mg PO BID Qty: 60 2RF lithium carbonate 300 mg tablet 450 mg PO BID Qty: 90 5RF latanoprost 0.005 % drops 1 drp ophthalmic (eye) QPM propranolol 120 mg capsule,extended release 24 hr 120 mg PO DAILY gabapentin 300 mg capsule 300 mg PO TID Ubrelvy 100 mg tablet See Rx Instructions .ROUTE .COMPLEX Rx Instructions: TAKE 1 TABLET AT ONSET OF MIGRAINE, MAY REPEAT IN 2 HOURS IF NEEDED. MAX DOSE 200 MG IN 24 HOURS. Discharge Orders: Discharge ED (Routine); Ordered 10/15/23 Ordered By: Roshan Earl Referrals: Pallavi Baxter DO [Primary Care Provider] - 1-3 days Discharge Diet: Advance as tolerated Discharge Activity: Resume usual activity Patient Instructions: Weakness (ED), Fatigue (ED) Coding Level of Care Code ED Life Manager for [place]
[2023-10-15 16:28] LABS: Leukocyte Esterase Urine Negative (Negative)
--- NOTE | 2023-10-15 16:30 | ECG_ITS ---
[facility] Test Date: 2023-10-15 Pat Name: Iliana Wayne Department: Room: Gender: Female Record Label Internship: : 1980 Requested By: Roshan Earl Order Number: [id number] Sam MD: Aidan Banks M.D. Measurements Intervals [place] Rate: 70 P: 12 IN: 169 QRS: -21 QRSD: 89 T: 2 QT: 355 QTc: 384 Interpretive Statements SINUS RHYTHM LOW QRS VOLTAGE IN PRECORDIAL LEADS [QRS DEFLECTION < 1.0 mV IN CHEST LEADS] MINIMAL VOLTAGE CRITERIA FOR LVH, CONSIDER NORMAL VARIANT [MEETS CRITERIA IN ONE OF: R(aVL), S(V1), R(V5), R(V5/V6)+S(V1)] POSSIBLE ANTERIOR MYOCARDIAL INFARCTION , PROBABLY OLD [30 ms Q WAVE IN V3/V4, OR R < 0.2 mV IN V4] Compared to ECG 11/09/2015 00:55:11 Myocardial infarct finding now present Electronically Signed On 10-15-2023 17:58:19 CDT by Aidan Banks M.D. [id number]
[2023-10-15 17:58] LABS: Basophils # 0.1 10^3/uL (0.0-0.1); Basophils % 0.6 %; Eosinophils # 0.3 10^3/uL (0.0-0.8); Lymphocytes # 2.8 10^3/uL (0.8-4.8); Lymphocytes % 19.8 %; Mean Corpuscular HGB Conc 32.4 g/dL (30-55); Mean Corpuscular Hemoglobin 29.3 pg (27-33); Mean Corpuscular Volume 90.6 fl (85-98); Mean Platelet Volume 8.5 fL (7.4-10.4); Monocytes # 0.8 10^3/uL (0.2-0.9); Monocytes % 5.2 %; Neutrophils # 10.29 10^3/uL (1.8-7.7); Neutrophils % 72.1 %; Nucleated Red Blood Cells % 0 %; Platelet Count 250 10^3/cmm (157-399); Red Blood Count 5.63 10^6/uL (3.85-5.65); Red Cell Distribution Width 14.7 % (12.1-15.1); White Blood Count 14.29 10^3/uL (3.29-11.43)
[2023-10-15 18:27] LABS: Alanine Aminotransferase 14 U/L (0-33); Albumin Level 4.3 g/dL (3.5-5.2); Alkaline Phosphatase 89 U/L (35-105); Anion Gap 12.3 (5-19); Aspartate Amino Transferase 13 U/L (0-32); Blood Urea Nitrogen 7 mg/dL (6-20); Calcium 10.9 mg/dL (8.5-10.5); Carbon Dioxide 24 mmol/L (22-29); Chloride 112 mmol/L (98-107); Creatinine Clr Calc Pharmacy 120.3657; Globulin 2.6 g/dL (1.3-4.6); Glomerular Filtration Rate 77.9 mL/min (90-130); Glucose 93 mg/dL (65-115); Magnesium 2.5 mg/dL (1.7-2.3); Osmolality Calculated 296 mOsm/kg (285-295); Potassium 4.3 mmol/L (3.5-5.1); Sodium 144 mmol/L (136-145); Thyroid Stimulating Hormone 2.28 uIU/mL (0.27-4.20); Total Bilirubin 0.4 mg/dL (0.15-1.2); Total Protein 6.9 g/dL (6.6-8.7)
[2023-10-15 18:30] LABS: HCG, Serum Qual Negative (Negative)
[2023-10-15 19:42] LABS: Lithium 0.6 mmol/L (0.6-1.2)
[2023-10-15 20:06] VITALS: BP 145/80; PULSE 80; RESP 18; O2SAT 98
== END 2023-10-15 20:07 | disposition home or self-care (01) ==
PROVIDERS: Emergency Provider Emergency Medicine; PCP Family Medicine
DX: R53.83 Other fatigue (principal); I10 Essential (primary) hypertension
CPT/HCPCS: 36415; 70450; 71045; 80053; 80178; 81003; 83735; 84443; 84703; 85025; 93005; 99285

== ENCOUNTER 2023-12-11 10:43 | Inpatient (IN) | payer OTHER, SELFPAY ==
[2023-12-11 10:46] VITALS: BP 147/91; PULSE 79; RESP 18; TEMP 36.8; O2SAT 98; BMI 54.0
--- NOTE | 2023-12-11 10:48 | W.ED.PSYCHS ---
HPI - Psych General: Chief Complaint: Psychiatric Symptoms Stated Complaint: si Time Seen by Provider: 12/11/23 10:48 Source: patient Mode of arrival: ambulatory Limitations: no limitations History of Present Illness: Patient is a 43-year-old female presents to ED today with a complaint of depression. She states she has a history of bipolar. She states she normally sees Dr. Ricketts at [facility] but he is expected to be out of the office an additional 3 weeks. Patient states she is not having suicidal ideations. She has never attempted suicide previously. She feels like her depression has worsened to the point where she is no longer able to perform her job. She is tearful stating she feels like the world and family would be better off without her. She is requesting hospitalization. MD complaint: feels depressed Onset (ago): day(s) Duration: constant History of same: Yes Relieving factors: none Exacerbating factors: none Associated psychiatric symptoms: depression Associated symptoms: Reports depression; Deny auditory hallucinations, visual hallucinations, homicidal ideation or suicidal ideation Treatments prior to arrival: none Review of Systems Const: Denies: fever(s) or chills Card: Denies: chest pain, palpitations, lightheadedness or syncope Resp: Denies: dyspnea GI: Denies: abdominal pain, nausea, vomiting or diarrhea Skin/Breast: Denies: rash Neuro: Denies: headache(s) Psych: Reports: anxiety, depression, mood swings and hopelessness; Denies: visual hallucinations, auditory hallucinations, suicidal ideation or homicidal ideation [facility] ED PFSH: Medical History Psychiatric care Hypertension Says when she lost some weight, the hypertension got better and she is now off medication Chronic tension headaches Depression Surgical History No history of previous surgery Social History Smoking and tobacco/nicotine status: never used tobacco/nicotine Second hand smoke exposure: No Alcohol intake: never Substance/Drug Use: never Physical Exam Const: COMMON NORMALS: no acute distress, patient oriented x3, no limitations, alert and well nourished GENERAL APPEARANCE: cooperative NUTRITIONAL APPEARANCE: obese morbidly obese (BMI of 54.0) ORIENTATION/CONSCIOUSNESS: Yes awake, Yes oriented to person, Yes oriented to place and Yes oriented to time Resp: COMMON NORMALS: normal respiratory effort and clear to auscultation bilaterally AUSCULTATION: clear to auscultation bilaterally Cardio: COMMON NORMALS: regular rate and regular rhythm RATE: regular rate RHYTHM: regular rhythm Neuro: COMMON NORMALS: patient oriented x3, moves all extremities, no focal motor deficits and no sensory deficits noted SENSORIUM/ORIENTATION: Yes alert, Yes oriented to person, Yes oriented to place and Yes oriented to time Psych: COMMON NORMALS: mental status grossly normal, Normal thought process present, cooperative, normal affect, speech normal, activity/motor behavior normal, denies hallucinations, denies homicidal ideation and denies suicidal ideation APPEARANCE: Yes grossly normal ATTITUDE: Yes calm and Yes Other attitude/behavior findings present (Psych) (tearful at times) ACTIVITY/MOTOR BEHAVIOR: Yes appropriate eye contact and No psychomotor agitation SPEECH: Yes normal speech MOOD & AFFECT: Yes euthymic mood THOUGHT PROCESS: Normal thought process present ATTENTION/CONCENTRATION: Yes attention grossly intact and Yes concentration grossly intact MEMORY/COGNITION: Yes memory grossly intact and Yes cognition grossly intact INSIGHT: Good insight present (Psych) JUDGEMENT: Good judgement present (Psych) Skin: COMMON NORMALS: no rashes or lesions noted GENERAL SKIN EXAM: no rashes or lesions noted Course Consultations: Consultation #1: Dr. Stanford-accepts hospitalization to [facility] Vital Signs: Vital signs: Vital Signs Temperature 98.3 F 12/11/23 10:46 Pulse Rate 79 12/11/23 10:46 Respiratory Rate 18 12/11/23 10:46 Blood Pressure 147/91 12/11/23 10:46 Pulse Oximetry 98 12/11/23 10:46 Oxygen Delivery Me thod Room Air 12/11/23 10:46 [facility] - Psych Medical Decision Making Patient will be an admit to [facility] to Dr. Stanford for treatment of her worsening depression. She is voluntary at this time. No radiology studies performed this visit Discharge Plan Discharge Patient Disposition: Admitted As Inpatient Clinical Impression: Bipolar II disorder, severe, depressed, with anxious distress Condition: Stable Prescriptions: No Action lamotrigine 100 mg tablet 100 mg PO BID Qty: 60 11RF alprazolam [Xanax] 0.5 mg tablet 0.5 mg PO BID Qty: 60 2RF lithium carbonate 300 mg tablet 450 mg PO BID Qty: 90 5RF propranolol 160 mg capsule,extended release 24 hr 160 mg PO DAILY latanoprost 0.005 % drops 1 drp ophthalmic (eye) QPM gabapentin 300 mg capsule 300 mg PO TID Ubrelvy 100 mg tablet See Rx Instructions .ROUTE .COMPLEX Rx Instructions: TAKE 1 TABLET AT ONSET OF MIGRAINE, MAY REPEAT IN 2 HOURS IF NEEDED. MAX DOSE 200 MG IN 24 HOURS. Referrals: Pallavi Baxter DO [Primary Care Provider] - Patient Instructions: Opioid Safety, Pain Management Coding Level of Care Code ED [employer] K[employer] for [place]
[2023-12-11 11:53] LABS: Basophils # 0.1 10^3/uL (0.0-0.1); Basophils % 0.5 %; Eosinophils # 0.3 10^3/uL (0.0-0.8); Eosinophils % 2.3 %; Hematocrit 48.2 % (36-47); Lymphocytes # 2.4 10^3/uL (0.8-4.8); Lymphocytes % 20.7 %; Mean Corpuscular HGB Conc 33.6 g/dL (30-55); Mean Corpuscular Hemoglobin 29.9 pg (27-33); Mean Corpuscular Volume 89.1 fl (85-98); Mean Platelet Volume 8.5 fL (7.4-10.4); Monocytes # 0.5 10^3/uL (0.2-0.9); Monocytes % 4.4 %; Neutrophils # 8.28 10^3/uL (1.8-7.7); Neutrophils % 71.6 %; Nucleated Red Blood Cells % 0 %; Platelet Count 215 10^3/cmm (157-399); Red Blood Count 5.41 10^6/uL (3.85-5.65); Red Cell Distribution Width 14.7 % (12.1-15.1); White Blood Count 11.57 10^3/uL (3.29-11.43)
--- NOTE | 2023-12-11 12:03 | PC.NURSE ---
REPORT CALLED TO NPU. NPU AWARE THAT PATIENT DOES NOT HAVE SCRUBS ON DUE TO SIZING. RN STATES THAT IS OK TO ALREADY HAVING BED AVAILABLE AND THEY WOULD GET PATIENT CHANGED UPON ARRIVAL.
[2023-12-11 12:07] LABS: Acetaminophen < 5.0 ug/mL (10-30); Alanine Aminotransferase 13 U/L (0-33); Albumin Level 4.1 g/dL (3.5-5.2); Alcohol Level < 10 mg/dL (0-10); Alkaline Phosphatase 74 U/L (35-105); Anion Gap 10.3 (5-19); Aspartate Amino Transferase 9 U/L (0-32); Blood Urea Nitrogen 6 mg/dL (6-20); Calcium 9.5 mg/dL (8.5-10.5); Carbon Dioxide 23 mmol/L (22-29); Chloride 114 mmol/L (98-107); Creatinine Clr Calc Pharmacy 140.4984; Globulin 2.3 g/dL (1.3-4.6); Glomerular Filtration Rate 90.9 mL/min (90-130); Glucose 101 mg/dL (65-115); HCG, Serum Qual Negative (Negative); Osmolality Calculated 294 mOsm/kg (285-295); Potassium 4.3 mmol/L (3.5-5.1); Salicylate 0.6 mg/dL (3-10); Sodium 143 mmol/L (136-145); Total Bilirubin 0.5 mg/dL (0.15-1.2); Total Protein 6.4 g/dL (6.6-8.7)
[2023-12-11 12:47] LABS: Amphetamines Screen Urine Negative (Negative); Barbiturates Screen Urine Negative (Negative); Benzodiazepines Screen Urine Positive (Negative); Cocaine Screen Urine Negative (Negative); Opiate Screen Urine Negative (Negative); PCP Screen Urine Negative (Negative); THC Screen Urine Negative (Negative)
[2023-12-11 13:02] VITALS: BP 120/85; PULSE 73; RESP 18; TEMP 36.4; O2SAT 99
[2023-12-11] MEDS: hyDROXYzine 25 mg Capsule 50 MG PO (13:45)
[2023-12-11 14:00] VITALS: BP 120/85; PULSE 73; RESP 18; TEMP 36.4; O2SAT 99
[2023-12-11 14:05] LABS: Lithium 0.8 mmol/L (0.6-1.2)
--- NOTE | 2023-12-11 15:07 | PC.NURSE ---
Patient arrived to the unit via wheelchair. Patient sees Dr. Cabral, but Dr. Cabral is not back in the office until December 24. Patient states that since May, her depression has taken a nose-dive with no known cause. Patient denies SI, HI, AVH. Patient appears anxious upon admission, tearful. Patient reports periods of crying followed by periods of feeling nothing. Patient cooperative.
[2023-12-11] MEDS: lithium carbonate 150 mg Capsule PO (18:26)
[2023-12-11] MEDS: lithium carbonate 300 mg Capsule PO (18:26)
[2023-12-11] MEDS: lamoTRIgine 100 mg Tablet PO (18:26)
[2023-12-11] MEDS: latanoprost 0.005% Op Soln 2.5 mL Btl 1 DROP EYE-BOTH (18:39)
[2023-12-11 20:07] VITALS: BP 102/65; PULSE 74; RESP 18; TEMP 36.4; O2SAT 100
[2023-12-11] MEDS: ALPRAZolam 0.5 mg Tablet PO (21:13)
[2023-12-11] MEDS: gabapentin 300 mg Capsule PO (21:13)
[2023-12-11] MEDS: trazodone 50 mg Tablet PO (21:13)
[2023-12-12 06:00] VITALS: BP 101/27; PULSE 73; RESP 18; TEMP 36.8; O2SAT 97
[2023-12-12] MEDS: lamoTRIgine 100 mg Tablet PO (09:19)
[2023-12-12] MEDS: gabapentin 300 mg Capsule PO ×3 (09:19→20:38)
[2023-12-12] MEDS: lithium carbonate 300 mg Capsule PO ×2 (09:19→18:51)
[2023-12-12] MEDS: ALPRAZolam 0.5 mg Tablet PO ×2 (09:19→20:39)
[2023-12-12] MEDS: lithium carbonate 150 mg Capsule PO (09:19)
--- NOTE | 2023-12-12 09:21 | PC.NURSE ---
Patient's mother to bring in her medication for propranolol.
[2023-12-12] MEDS: PROPRANOLOL 160 MG 160 EACH PO (10:08)
--- NOTE | 2023-12-12 13:33 | W.PM.NPUH&PS ---
Providers/Chief Complaint Admitting Physician: Soham Stanford MD Primary Care Provider: Pallavi Baxter DO Chief Complaint: si HPI NPU History of Present Illness Iliana Wayne is a 43 year old female currently treated on outpatient basis by Dr. Ricketts with a history of bipolar 2 disorder who presented to the emergency department after she had been requested to go there by her counselor. Patient reports that she has had worsening depression over the past several weeks. She reports that she has been feeling more hopeless and crying more frequently. She reports that she has felt overwhelmed and reports that she has been going through a steady decline in functioning since April 2023. She reports that she would not mind not waking up in the morning but denied any active intent on hurting herself. She denies any homicidal ideation. She did not endorse any psychotic symptoms. She reports that she had initially suffered from depression beginning in her 20s but began to have episodes of hypomania around the age of 34. She reports having made significant medication changes over the last 6 months and reports that she had previously been on lithium and Caplyta but states that she had felt like a zombie and reported that she had then stopped the Caplyta. She had reported that lithium has not benefited her hypomanic symptoms but has given her greater difficulties with being able to focus with reports of cognitive problems that affect her job and affect her self-esteem. She reports that her inability to concentrate since being on the lithium has made her more anxious about the potential of getting fired. She reports that she chronically struggles with excessive worry with complaints of muscle tension and some difficulties falling asleep. She reports having difficulty with managing her worries as well. She had endorsed cycling through periods of hypomania with racing thoughts and intense periods of euphoria but states that she spends at least 50% of her time in severe depression. She had reported multiple medication trials on medicines used to treat bipolar depression. She currently complains of low energy, hypersomnia, and low motivation. She also reports having struggles with pain as she reports having chronic headaches and supports history of migraine headaches as well as tension headaches that she describes as being frequent. She also reports having a history of chronic overeating. She often reports eating huge quantities of food in 1 sitting. She often reports embarrassment about how much she has eaten and reports that she feels as if her eating is out of control. She denies any history of purging. She reports a history of low self-esteem. Patient reports a history of panic attacks that occur very infrequently. Inpatient psychiatric history: None Outpatient psychiatric history: She is followed by Dr. Ricketts at the behavioral health clinic in [place]. She reports seeing a therapist Ally billings on a weekly basis. She has reported multiple medication trials for treating bipolar disorder including Latuda, Vraylar, Substance abuse history: None reported Medical history: History of sleep apnea, history of chronic tension headaches, history of morbid obesity, migraine headaches Surgical history: Cholecystectomy Allergies: No known drug allergies Medications: [place] 450 mg twice a day, propranolol ER 160 mg daily, Lamictal 100 mg twice a day, gabapentin 300 mg 3 times a day, Xanax 0.5 mg twice a day, Ubrelvy, Family psychiatric history: None reported Legal history: None, history: None Social history: Patient was born in [place] and raised by her biological parents. She reported no history of sexual physical or emotional abuse. She has 1 sibling. She had graduated high school and lives in [place] alone. She has never been and has no children. 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 She reported no history of learning problems. She reports having some social isolation with limited relationships noted. Meds NPU Home Medications Medication Instructions Recorded Confirmed Last Taken Type latanoprost 0.005 % eye drops 1 drp ophthalmic (eye) QPM 05/12/23 12/11/23 12/10/23 History lamotrigine 100 mg tablet 100 mg PO BID #60 tabs 07/24/23 12/11/23 12/11/23 Rx alprazolam 0.5 mg tablet (Xanax) 0.5 mg PO BID #60 tabs 10/02/23 12/11/23 12/11/23 Rx lithium carbonate 300 mg tablet 450 mg (1.5 x 300 mg) PO BID #90 10/02/23 12/11/23 12/11/23 Rx tabs gabapentin 300 mg capsule 300 mg PO TID 10/15/23 12/11/23 12/11/23 History ubrogepant 100 mg tablet (Ubrelvy) See Rx Instructions .Route .COMPLEX 10/15/23 12/11/23 Unknown History propranolol 160 mg capsule,24 160 mg PO DAILY 11/06/23 12/11/23 12/11/23 History hr,extended release Allergies Allergy/AdvReac Type Severity Reaction Status Date / Time No Known Allergies Allergy Verified 11/06/23 12:51 PFSH NPU PFSH: Medical History Psychiatric care Hypertension Says when she lost some weight, the hypertension got better and she is now off medication Chronic tension headaches Depression Surgical History No history of previous surgery Social History Smoking and tobacco/nicotine status: never used tobacco/nicotine Second hand smoke exposure: No Alcohol intake: never Substance/Drug Use: never Mental Status Exam MSE Comments: Patient is a casually dressed white female who appeared to be significantly overweight. She was alert and oriented to person place and time. There was no evidence of any abnormal involuntary motor movements tics or tremors appreciated. Her speech was normal in regards to rate rhythm and prosody. Her mood was described as depressed. Her affect was restricted in range and mood congruent as she was tearful at times. There was prominent psychomotor retardation. Her thought process was linear logical and goal-directed. Her thought content showed no evidence of active homicidal ideation. She endorsed passive suicidal ideation with no active plan. She was anergic. Her attention span was at times variable. Her recent and remote memory appeared grossly intact. There was no evidence of delusional thinking. She did not appear to be responding to internal stimuli. Her insight was fair. Her judgment was poor. Her impulse control appeared guarded. Vitals/I&O/Wt Last Vital Signs Temp 98.2 F 12/12/23 06:00 Pulse 73 12/12/23 06:00 Resp 18 12/12/23 06:00 BP 101/27 12/12/23 06:00 Pulse Ox 97 12/12/23 06:00 O2 Del Method Room Air 12/12/23 06:00 Weight last 48 hrs Weight 138.346 kg Data NPU 12/11/23 11:40 12/11/23 11:40 A&P Assessment and plan (1) Bipolar II disorder, severe, depressed, with anxious distress: (2) Generalized anxiety disorder: (3) Binge eating disorder: Plan 43-year-old female history of worsening and depression with a diagnosis of type II bipolar disorder along with generalized anxiety disorder currently reporting significant feelings of hopelessness and passive suicidal ideation. Patient was agreeable to adjustments in her medication and may benefit from continued inpatient stay at this time. #1.? Engage patient in individual milieu and group therapy. #2 Patient agreeable to changes in medication, will increase lamotrigine to 250mg/day, taper lithium as no benefit reported regarding silvia and considerable cognitive slowing reported. Will start seroquel xr 50mg at night for bipolar depression #3 BEDS-7 screener given, patient appears to struggle with Binge Eating disorder as well. #4?? TO-15 minute checks? #5?? Will attempt to gather collateral information Involuntary Hold Information 96 Hour Hold: 96 Hour Involuntary Admission: No Attestations NPU Medical Necessity Statement*: Inpatient hospitalization is medically necessary and deemed to ?be ?the clinically appropriate intervention ?at this time.? We will monitor/initiate medications and make changes as indicated.? The patient will be in the hospital for over 2 midnights.? The patient?s likely length of stay 5-7 days. Coding Level of Care Code Acute Code for Chg Fwd Diagnoses Bipolar II disorder, severe, depressed, with anxious distress F31.81 Generalized anxiety disorder F41.1 Binge eating disorder F50.81
[2023-12-12 14:00] VITALS: BP 149/81; PULSE 84; RESP 20; TEMP 37.2; O2SAT 98
[2023-12-12] MEDS: latanoprost 0.005% Op Soln 2.5 mL Btl 1 DROP EYE-BOTH (18:50)
[2023-12-12] MEDS: quetiapine XR (24HR) 50 mg Tablet PO (20:37)
[2023-12-12] MEDS: lamoTRIgine 100 mg Tablet 150 MG PO (20:37)
[2023-12-12 22:00] VITALS: BP 137/83; PULSE 89; RESP 16; TEMP 36.7; O2SAT 99
[2023-12-12] MEDS: hyDROXYzine 25 mg Capsule 50 MG PO (22:22)
[2023-12-13 06:00] VITALS: BP 107/69; PULSE 80; RESP 16; O2SAT 98
[2023-12-13] MEDS: gabapentin 300 mg Capsule PO ×3 (08:10→20:59)
[2023-12-13] MEDS: lamoTRIgine 100 mg Tablet PO (08:10)
[2023-12-13] MEDS: PROPRANOLOL 160 MG 160 EACH PO (08:10)
[2023-12-13] MEDS: lithium carbonate 300 mg Capsule PO (08:10)
[2023-12-13] MEDS: ALPRAZolam 0.5 mg Tablet PO ×2 (08:10→20:57)
--- NOTE | 2023-12-13 08:59 | PC.NURSE ---
PT RESTING IN BED. DENIES SI/HI AND AVH AT THIS TIME. DENIES PAIN. RATES ANXIETY 3/10, DECLINES ANTI-*ANXIETY MEDS, RATES DEPRESSION /10. PT IS NOTED TO HAVE A FLAT AFFECT AND DEPRESSED MOOD. 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 PT GOAL FOR THE DAY IS TO MAKE SURE MY MEDS ARE WORKING RIGHT AND GET FIGURED OUT FOR MY DEPRESSION TO GET BETTER. ALL QUESTIONS ANSWERED AND SUPPORT VOICED.
[2023-12-13 14:00] VITALS: BP 128/84; PULSE 82; RESP 20; TEMP 36.9; O2SAT 99
--- NOTE | 2023-12-13 17:12 | P.NPUPN_ITS ---
Subjective NPU 2 Subjective: 43-year-old female with bipolar 2 disorder admitted with passive suicidal ideation and worsening depression. She does report having cognitive disturbance that appeared to have been worsening with lithium. She had reported no side effects from the Seroquel XR. She had reported that she was feeling more hopeful. She reported having struggles with concentration and reported having been more depressed for the last several weeks. She had remained somewhat isolative on the milieu and reported having some anxiety with being in groups. She had again acknowledged having a history of excessive binge eating with no history of purging for many years. She had reported having limited engagement with her therapist regarding this problem. Mental Status Exam 2 MSE Comments: Patient is a casually dressed white female who appeared to be significantly overweight. She was alert and oriented to person place and time. There was no evidence of any abnormal involuntary motor movements tics or tremors appreciated. Her speech was normal in regards to rate rhythm and prosody. Her mood was described as a little better. Her affect remained flat. There was prominent psychomotor retardation. Her thought process was linear logical and goal-directed. Her thought content showed no evidence of active homicidal ideation. She endorsed passive suicidal ideation with no active plan. She was anergic. Her attention span was variable. Her recent and remote memory appeared grossly intact. There was no evidence of delusional thinking. She did not appear to be responding to internal stimuli. Her insight was poor. Her judgment was poor. Her impulse control appeared guarded. Vitals/I&O/Wt Last Vital Signs Temp 98.4 F 12/13/23 14:00 Pulse 82 12/13/23 14:00 Resp 20 H 12/13/23 14:00 BP 128/84 12/13/23 14:00 Pulse Ox 99 12/13/23 14:00 O2 Del Method Room Air 12/13/23 14:00 Data NPU 12/11/23 11:40 12/11/23 11:40 A&P Assessment and plan (1) Bipolar II disorder, severe, depressed, with anxious distress: (2) Generalized anxiety disorder: (3) Binge eating disorder: Plan 43-year-old female history of worsening and depression with a diagnosis of type II bipolar disorder along with generalized anxiety disorder currently reporting significant feelings of hopelessness and passive suicidal ideation. Patient was agreeable to adjustments in her medication and may benefit from continued inpatient stay at this time. #1.? Engage patient in individual milieu and group therapy. #2 Patient agreeable to changes in medication, continue lamotrigine to 250mg/day, taper lithium as no benefit reported regarding silvia and considerable cognitive slowing reported. Increase Seroquel XR 100mg at night for bipolar depression. Discontinue lithium. Continue Gabapentin. #3 BEDS-7 screener given, patient appears to struggle with Binge Eating disorder as well. #4?? TO-15 minute checks? #5?? Will attempt to gather collateral information Involuntary Hold Information 2 96 Hour Hold: 96 Hour Involuntary Admission: No Attestations NPU 2 Medical Necessity Statement*: Inpatient hospitalization is medically necessary and deemed to ?be ?the clinically appropriate intervention ?at this time.? We will monitor/initiate medications and make changes as indicated.? The patient?s likely length of stay 5-7 days. Coding Level of Care Code Acute Code for Chg Fwd Diagnoses Bipolar II disorder, severe, depressed, with anxious distress F31.81 Generalized anxiety disorder F41.1 Binge eating disorder F50.81
[2023-12-13] MEDS: latanoprost 0.005% Op Soln 2.5 mL Btl 1 DROP EYE-BOTH (18:48)
[2023-12-13 19:00] VITALS: BP 116/77; PULSE 76; RESP 18; TEMP 36.9; O2SAT 97
[2023-12-13] MEDS: quetiapine XR (24HR) 50 mg Tablet 100 MG PO (20:56)
[2023-12-13] MEDS: hyDROXYzine 25 mg Capsule 50 MG PO (20:56)
[2023-12-13] MEDS: lamoTRIgine 100 mg Tablet 150 MG PO (20:56)
[2023-12-13] MEDS: acetaminophen 325 mg Tablet 650 MG PO (20:57)
[2023-12-14 06:00] VITALS: BP 108/70; PULSE 78; RESP 18; TEMP 36.6; O2SAT 97
[2023-12-14] MEDS: ALPRAZolam 0.5 mg Tablet PO ×2 (08:18→21:08)
[2023-12-14] MEDS: lamoTRIgine 100 mg Tablet PO (08:18)
[2023-12-14] MEDS: gabapentin 300 mg Capsule PO ×3 (08:18→21:10)
[2023-12-14] MEDS: PROPRANOLOL 160 MG 160 EACH PO (08:19)
--- NOTE | 2023-12-14 08:27 | PC.NURSE ---
PT CURRENTLY DENIES SI/HI/AH/VH. PT CURRENTLY DENIES ANXIETY. PT ENDORSES DEPRESSION RATING IT A 7/10 ON A 0-10 SCALE WHERE 0 IS NONE AND 10 IS THE WORST. PT IS TEARFUL DURING ASSESSMENT. PT WAS COOPERATIVE WITH ASSESSMENT AND MEDICATIONS. PT CURRENT NEEDS ARE MET AT THIS TIME.
[2023-12-14] MEDS: hyDROXYzine 25 mg Capsule 50 MG PO ×2 (09:53→21:08)
[2023-12-14 14:00] VITALS: BP 98/68; PULSE 78; RESP 17; TEMP 36.8; O2SAT 96
--- NOTE | 2023-12-14 17:08 | P.NPUPN_ITS ---
Subjective NPU 2 Subjective: 43-year-old female with bipolar 2 disorder admitted with passive suicidal ideation and worsening depression. Patient had endorsed feeling more tearful today and was unable to describe why she had felt more hopeless and down. She reported that she had felt more anxious. She had stated that she was crying after a phone call yesterday as she had expressed sadness that she was here in the hospital. She had reported improved sleep. She denied any excess fatigue. She had continued to report having problems with anxiety and stated that it was difficult for her to go to groups as she felt as if it time she was the center of attention. Mental Status Exam 2 MSE Comments: Patient is a casually dressed white female who appeared to be significantly overweight. She was alert and oriented to person place and time. There was no evidence of any abnormal involuntary motor movements tics or tremors appreciated. Her speech was normal in regards to rate rhythm and prosody. Her mood was described as sad today. Her affect appeared flat. There was prominent psychomotor retardation. Her thought process was linear, logical and goal-directed. Her thought content showed no evidence of active homicidal ideation. She endorsed passive suicidal ideation with no active plan. She was anergic. Her attention span was variable. Her recent and remote memory appeared grossly intact. There was no evidence of delusional thinking. She did not appear to be responding to internal stimuli. Her insight was poor. Her judgment was poor. Her impulse control appeared guarded. Vitals/I&O/Wt Last Vital Signs Temp 98.2 F 12/14/23 14:00 Pulse 78 12/14/23 14:00 Resp 17 12/14/23 14:00 BP 98/68 12/14/23 14:00 Pulse Ox 96 12/14/23 14:00 O2 Del Method Room Air 12/14/23 06:00 Data NPU 12/11/23 11:40 12/11/23 11:40 A&P Assessment and plan (1) Bipolar II disorder, severe, depressed, with anxious distress: (2) Generalized anxiety disorder: (3) Binge eating disorder: Plan 43-year-old female history of worsening and depression with a diagnosis of type II bipolar disorder along with generalized anxiety disorder currently reporting significant feelings of hopelessness and passive suicidal ideation. Patient was agreeable to adjustments in her medication and may benefit from continued inpatient stay at this time. #1.? Engage patient in individual milieu and group therapy. #2 Patient agreeable to changes in medication, continue lamotrigine to 250mg/day,discontinued lithium as no benefit reported regarding silvia and considerable cognitive slowing reported. Increase Seroquel XR 150mg at night for bipolar depression. Continue Gabapentin. Continue xanax 5mg bid. #3 BEDS-7 screener revealed prominent Binge Eating disorder=may benefit from vyvanse. #4?? TO-15 minute checks? #5?? Will attempt to gather collateral information Involuntary Hold Information 2 96 Hour Hold: 96 Hour Involuntary Admission: No Attestations NPU 2 Medical Necessity Statement*: Inpatient hospitalization is medically necessary and deemed to ?be ?the clinically appropriate intervention ?at this time.? We will monitor/initiate medications and make changes as indicated.? The patient?s likely length of stay 5-7 days. Coding Level of Care Code Acute Code for Chg Fwd Diagnoses Bipolar II disorder, severe, depressed, with anxious distress F31.81 Generalized anxiety disorder F41.1 Binge eating disorder F50.81
[2023-12-14] MEDS: latanoprost 0.005% Op Soln 2.5 mL Btl 1 DROP EYE-BOTH (17:32)
[2023-12-14 20:07] VITALS: BP 135/76; PULSE 79; RESP 16; TEMP 36.3; O2SAT 99
[2023-12-14] MEDS: quetiapine XR (24HR) 50 mg Tablet 150 MG PO (21:08)
[2023-12-14] MEDS: lamoTRIgine 100 mg Tablet 150 MG PO (21:09)
[2023-12-14] MEDS: acetaminophen 325 mg Tablet 650 MG PO (21:09)
[2023-12-15 06:00] VITALS: BP 106/70; PULSE 83; RESP 16; TEMP 36.6; O2SAT 95
--- NOTE | 2023-12-15 07:46 | PC.NURSE ---
PT CURRENTLY DENIES SI/HI/AH/VH. PT CURRENTLY DENIES ANXIETY, HOWEVER PT AFFECT APPEARS ANXIOUS AND DEPRESSED. PT ENDORSES DEPRESSION RATING IT A 5/10 ON A 0-10 SCALE WHERE 0 IS NONE AND 10 IS THE WORST POSSIBLE. PT ENDORSES FEELING SLIGHTLY BETTER THIS MORNING. PT STATES IT IS NOT BAD IT WAS YESTERDAY. PT WAS WILLING AND COOPERATIVE WITH ASSESSMENT AND MEDICATIONS. PT CURRENT NEEDS ARE MET AT THIS TIME.
[2023-12-15] MEDS: PROPRANOLOL 160 MG 160 EACH PO (08:34)
[2023-12-15] MEDS: gabapentin 300 mg Capsule PO ×3 (08:35→20:06)
[2023-12-15] MEDS: lamoTRIgine 100 mg Tablet PO (08:35)
[2023-12-15] MEDS: ALPRAZolam 0.5 mg Tablet PO ×2 (08:35→20:06)
[2023-12-15 13:46] VITALS: BP 151/88; PULSE 84; RESP 16; TEMP 36.6; O2SAT 98
--- NOTE | 2023-12-15 14:29 | W.PM.NPUPNS ---
Subjective NPU Subjective: 43-year-old female with bipolar 2 disorder admitted with passive suicidal ideation and worsening depression. She had continued to report having some feelings of loneliness. She reports that she is feeling a little better today but reported that she continues to have intermittent periods of depression where she becomes more tearful. She had endorsed having some mood instability. She reported no side effects from her Seroquel and reported some improved sleep. She had not endorsed any excessive daytime sleepiness but did report that her sleep apnea had been severe in the past and had not been examined in several years. She continued to report having struggles with being in groups and crowds. Mental Status Exam MSE Comments: Patient is a casually dressed white female who appeared to be significantly overweight. She was alert and oriented to person place and time. There was no evidence of any abnormal involuntary motor movements tics or tremors appreciated. Her speech was normal in regards to rate rhythm and prosody. Her mood was described as okay. Her affect remained restricted in range and mood incongruent. There was significant psychomotor retardation. Her thought process was linear, logical and goal-directed. Her thought content showed no evidence of active homicidal ideation. She denied suicidal ideation with no active plan. She was anergic. Her attention span was variable. Her recent and remote memory appeared grossly intact. There was no evidence of delusional thinking. She did not appear to be responding to internal stimuli. Her insight was poor. Her judgment was poor. Her impulse control appeared guarded. Vitals/I&O/Wt Last Vital Signs Temp 97.8 F 12/15/23 13:46 Pulse 84 12/15/23 13:46 Resp 16 12/15/23 13:46 BP 151/88 12/15/23 13:46 Pulse Ox 98 12/15/23 13:46 O2 Del Method Room Air 12/15/23 06:00 Data NPU 12/11/23 11:40 12/11/23 11:40 A&P Assessment and plan (1) Bipolar II disorder, severe, depressed, with anxious distress: (2) Generalized anxiety disorder: (3) Binge eating disorder: Plan 43-year-old female history of worsening and depression with a diagnosis of type II bipolar disorder along with generalized anxiety disorder currently reporting significant feelings of hopelessness and passive suicidal ideation. Patient was agreeable to adjustments in her medication and may benefit from continued inpatient stay at this time. #1.? Engage patient in individual milieu and group therapy. #2 Patient agreeable to changes in medication, continue lamotrigine to 250mg/day,discontinued lithium as no benefit reported regarding silvia and considerable cognitive slowing reported. Increase Seroquel XR 200mg at night for bipolar depression tommorow.. Continue Gabapentin. Continue xanax 5mg bid. #3 BEDS-7 screener revealed prominent Binge Eating disorder=may benefit from vyvanse. #4?? TO-15 minute checks? #5?? Will attempt to gather collateral information Involuntary Hold Information 96 Hour Hold: 96 Hour Involuntary Admission: No Attestations NPU Medical Necessity Statement*: Inpatient hospitalization is medically necessary and deemed to ?be ?the clinically appropriate intervention at this time. We will monitor/initiate medications and make changes as indicated.? The patient?s likely length of stay 3-5 days. Coding Level of Care Code Acute Code for [facility] Fwd Diagnoses Bipolar II disorder, severe, depressed, with anxious distress F31.81 Generalized anxiety disorder F41.1 Binge eating disorder F50.81
[2023-12-15] MEDS: hyDROXYzine 25 mg Capsule 50 MG PO (16:03)
[2023-12-15] MEDS: acetaminophen 325 mg Tablet 650 MG PO (17:30)
[2023-12-15] MEDS: latanoprost 0.005% Op Soln 2.5 mL Btl 1 DROP EYE-BOTH (17:30)
[2023-12-15] MEDS: lamoTRIgine 100 mg Tablet 150 MG PO (20:06)
[2023-12-15] MEDS: quetiapine XR (24HR) 50 mg Tablet 150 MG PO (20:06)
[2023-12-15 20:16] VITALS: BP 127/72; PULSE 88; RESP 16; TEMP 36.3; O2SAT 97
[2023-12-16 06:00] VITALS: BP 111/74; PULSE 81; RESP 16; O2SAT 98
[2023-12-16] MEDS: gabapentin 300 mg Capsule PO ×3 (08:42→21:57)
[2023-12-16] MEDS: lamoTRIgine 100 mg Tablet PO (08:42)
[2023-12-16] MEDS: ALPRAZolam 0.5 mg Tablet PO ×2 (08:42→21:57)
[2023-12-16] MEDS: PROPRANOLOL 160 MG 160 EACH PO (08:42)
--- NOTE | 2023-12-16 09:00 | PC.NURSE ---
During morning assessment, patient was tearful. Patient stated that she has been feeling lonely and isolative being on the unit because typically she would have her phone to text people on. Patient verbalized understanding about the use of the patient telephone. Patient said that a friend and her dad might visit today. This nurse told patient she is welcome to visit with staff, just let us know. Verbalized understanding. Patient denies SI, HI, AVH. Patient stated that she slept well during the night.
[2023-12-16 13:23] VITALS: BP 131/84; PULSE 79; RESP 17; TEMP 36.3; O2SAT 96
--- NOTE | 2023-12-16 15:42 | P.NPUPN_ITS ---
Subjective NPU 2 Subjective: 43-year-old female with bipolar 2 disorder admitted with passive suicidal ideation and worsening depression. Patient had reported no problems with excessive daytime sleepiness. She had reported that she was feeling better and reported that she had less stressors here but felt ready to make some changes necessary to return home and began targeting her depression. She did not endorse any clear history of silvia. She had reported that she had a tendency to not seek out relationships and reported some low self-esteem and struggles with often imposing isolation on her self. She had reported that she had typically not tried to engage with family and friends when she was depressed. She had reported no worsening mood since the discontinuation of lithium. She had continued to report chronic problems with managing anxiety. Mental Status Exam 2 MSE Comments: Patient is a casually dressed white female who appeared to be significantly overweight. She was alert and oriented to person place and time. There was no evidence of any abnormal involuntary motor movements tics or tremors appreciated. Her speech was normal in regards to rate rhythm and prosody. Her mood was described as a little better. Her affect remained restricted in range and mood incongruent. There was significant psychomotor retardation. Her thought process was linear, logical and goal-directed. Her thought content showed no evidence of active homicidal ideation. She denied suicidal ideation with no active plan. Her attention span was variable. Her recent and remote memory appeared grossly intact. There was no evidence of delusional thinking. She did not appear to be responding to internal stimuli. Her insight was poor. Her judgment was poor. Her impulse control appeared guarded. Vitals/I&O/Wt Last Vital Signs Temp 97.4 F L 12/16/23 13:23 Pulse 79 12/16/23 13:23 Resp 17 12/16/23 13:23 BP 131/84 12/16/23 13:23 Pulse Ox 96 12/16/23 13:23 O2 Del Method Room Air 12/15/23 20:16 Weight last 48 hrs Weight 142.156 kg Data NPU 12/11/23 11:40 12/11/23 11:40 A&P Assessment and plan (1) Bipolar II disorder, severe, depressed, with anxious distress: (2) Generalized anxiety disorder: (3) Binge eating disorder: Plan 43-year-old female history of worsening and depression with a diagnosis of type II bipolar disorder along with generalized anxiety disorder currently reporting significant feelings of hopelessness and passive suicidal ideation. Patient was agreeable to adjustments in her medication and may benefit from continued inpatient stay at this time. #1.? Engage patient in individual milieu and group therapy. #2 Patient agreeable to changes in medication, continue lamotrigine to 250mg/day,discontinued lithium as no benefit reported regarding silvia and considerable cognitive slowing reported. Increase Seroquel XR 200mg at night today. Continue Gabapentin. Continue xanax . 5mg bid. #3 BEDS-7 screener revealed prominent Binge Eating disorder=may benefit from vyvanse. #4?? TO-15 minute checks? #5?? Will attempt to gather collateral information Involuntary Hold Information 2 96 Hour Hold: 96 Hour Involuntary Admission: No Attestations NPU 2 Medical Necessity Statement*: Inpatient hospitalization is medically necessary and deemed to ?be ?the clinically appropriate intervention at this time. We will monitor/initiate medications and make changes as indicated.? The patient?s likely length of stay 3-5 days. Coding Level of Care Code Acute Code for Chg Fwd Diagnoses Bipolar II disorder, severe, depressed, with anxious distress F31.81 Generalized anxiety disorder F41.1 Binge eating disorder F50.81
[2023-12-16] MEDS: acetaminophen 325 mg Tablet 650 MG PO (17:02)
[2023-12-16] MEDS: latanoprost 0.005% Op Soln 2.5 mL Btl 1 DROP EYE-BOTH (18:51)
[2023-12-16 20:43] VITALS: BP 137/84; PULSE 80; RESP 18; TEMP 36.5; O2SAT 96
[2023-12-16] MEDS: quetiapine XR (24HR) 50 mg Tablet 200 MG PO (21:57)
[2023-12-16] MEDS: lamoTRIgine 100 mg Tablet 150 MG PO (21:57)
[2023-12-17 06:00] VITALS: BP 108/72; PULSE 86; RESP 17; TEMP 36.6; O2SAT 98
[2023-12-17] MEDS: PROPRANOLOL 160 MG 160 EACH PO (08:26)
[2023-12-17] MEDS: gabapentin 300 mg Capsule PO ×2 (08:26→14:08)
[2023-12-17] MEDS: lamoTRIgine 100 mg Tablet PO (08:26)
[2023-12-17] MEDS: ALPRAZolam 0.5 mg Tablet PO (08:26)
[2023-12-17] MEDS: acetaminophen 325 mg Tablet 650 MG PO (13:11)
--- NOTE | 2023-12-17 14:14 | P.NPUDS_ITS ---
Diagnoses at Discharge Discharge Diagnosis (1) Bipolar II disorder, severe, depressed, with anxious distress: Status: Acute (2) Generalized anxiety disorder: Status: Acute (3) Binge eating disorder: Status: Acute Reason for Visit Reason for Visit: si Brief History: History of Present Illness Iliana Wayne is a 43 year old female currently treated on outpatient basis by Dr. Ricketts with a history of bipolar 2 disorder who presented to the emergency department after she had been requested to go there by her counselor. Patient reports that she has had worsening depression over the past several weeks. She reports that she has been feeling more hopeless and crying more frequently. She reports that she has felt overwhelmed and reports that she has been going through a steady decline in functioning since April 2023. She reports that she would not mind not waking up in the morning but denied any active intent on hurting herself. She denies any homicidal ideation. She did not endorse any psychotic symptoms. She reports that she had initially suffered from depression beginning in her 20s but began to have episodes of hypomania around the age of 34. She reports having made significant medication changes over the last 6 months and reports that she had previously been on lithium and Caplyta but states that she had felt like a zombie and reported that she had then stopped the Caplyta. She had reported that lithium has not benefited her hypomanic symptoms but has given her greater difficulties with being able to focus with reports of cognitive problems that affect her job and affect her self-esteem. She reports that her inability to concentrate since being on the lithium has made her more anxious about the potential of getting fired. She reports that she chronically struggles with excessive worry with complaints of muscle tension and some difficulties falling asleep. She reports having difficulty with managing her worries as well. She had endorsed cycling through periods of hypomania with racing thoughts and intense periods of euphoria but states that she spends at least 50% of her time in severe depression. She had reported multiple medication trials on medicines used to treat bipolar depression. She currently complains of low energy, hypersomnia, and low motivation. She also reports having struggles with pain as she reports having chronic headaches and supports history of migraine headaches as well as tension headaches that she describes as being frequent. She also reports having a history of chronic overeating. She often reports eating huge quantities of food in 1 sitting. She often reports embarrassment about how much she has eaten and reports that she feels as if her eating is out of control. She denies any history of purging. She reports a history of low self-esteem. Patient reports a history of panic attacks that occur very infrequently. Inpatient psychiatric history: None Outpatient psychiatric history: She is followed by Dr. Ricketts at the behavioral health clinic in [place]. She reports seeing a therapist Ally billings on a weekly basis. She has reported multiple medication trials for treating bipolar disorder including Latuda, Vraylar, Substance abuse history: None reported Medical history: History of sleep apnea, history of chronic tension headaches, history of morbid obesity, migraine headaches Surgical history: Cholecystectomy Allergies: No known drug allergies Medications: [place] 450 mg twice a day, propranolol ER 160 mg daily, Lamictal 100 mg twice a day, gabapentin 300 mg 3 times a day, Xanax 0.5 mg twice a day, Ubrelvy, Family psychiatric history: None reported Legal history: None, history: None Social history: Patient was born in [place] and raised by her biological parents. She reported no history of sexual physical or emotional abuse. She has 1 sibling. She had graduated high school and lives in [place] alone. She has never been and has no children. 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 She reported no history of learning problems. She reports having some social isolation with limited relationships noted. Hospital Course Hospital Course During the hospitalization, the patient had routine laboratory studies which we re within normal limits except for a few outliers.? Additionally, there was a general medical evaluation which was also within normal limits and revealed no new acute processes. ?At the time of discharge, lethality was denied. The patient had complained of having cognitive slowing from lithium and lithium was discontinued with no adverse consequences noted with no increase in silvia. Patient was started on Seroquel XR and titrated up to a dose of 200 mg prior to discharge to target bipolar depression. Lamictal was also increased to 100 mg in the morning and 150 mg at night to target bipolar depression. Patient also revealed having chronic problems with managing binge eating and met criteria for binge eating disorder. The patient had expressed some decrease in depression at the time of discharge and was agreeable to continuing follow-up on an outpatient basis. Mood and anxiety were well managed.? The patient endorsed a plan to avoid all drugs of abuse and follow up with the aftercare recommendations of the treatment team.? The patient was evaluated and deemed to be absent credible lethality and had achieved the maximum benefit from an inpatient hospitalization, and so was discharged. Involuntary Hold Information 96 Hour Hold: 96 Hour Involuntary Admission: No Mental Status Exam MSE Comments: Patient is a casually dressed white female who appeared to be significantly overweight. She was alert and oriented to person place and time. There was no evidence of any abnormal involuntary motor movements tics or tremors appreciated. Her speech was normal in regards to rate rhythm and prosody. Her mood was described as a good. Her affect appeared brighter on discharge. Mild psychomotor retardation remained present. Her thought process was linear, logical and goal-directed. Her thought content showed no evidence of active homicidal ideation. She denied suicidal ideation with no active plan. Her attention span was variable. Her recent and remote memory appeared grossly intact. There was no evidence of delusional thinking. She did not appear to be responding to internal stimuli. Her insight was improving. Her judgment was fair. Her impulse control appeared good. Discharge Data Studies Completed and Pending: Laboratory Results WBC 11.57 10^3/uL (3. 29-11.43) H 12/11/23 11:40 RBC 5.41 10^6/uL (3.8 5-5.65) 12/11/23 11:40 Hgb 16.20 g/dL (11.27 -16.99) 12/11/23 11:40 Hct 48.2 % (36-47) H 12/11/23 11:40 MCV 89.1 fl (85-98) 12/11/23 11:40 MCH 29.9 pg (27-33) 12/11/23 11:40 MCHC 33.6 g/dL (30-55) 12/11/23 11:40 RDW 14.7 % (12.1-15.1 ) 12/11/23 11:40 Plt Count 215 10^3/cmm (157 -399) 12/11/23 11:40 MPV 8.5 fL (7.4-10.4) 12/11/23 11:40 Neut % (Auto) 71.6 % 12/11/23 11:40 Lymph % (Auto) 20.7 % 12/11/23 11:40 [place] % (Auto) 4.4 % 12/11/23 11:40 Eos % (Auto) 2.3 % 12/11/23 11:40 Baso % (Auto) 0.5 % 12/11/23 11:40 Neut # (Auto) 8.28 10^3/uL (1.8 -7.7) H 12/11/23 11:40 Lymph # (Auto) 2.4 10^3/uL (0.8- 4.8) 12/11/23 11:40 [place] # (Auto) 0.5 10^3/uL (0.2- 0.9) 12/11/23 11:40 Eos # (Auto) 0.3 10^3/uL (0.0- 0.8) 12/11/23 11:40 Baso # (Auto) 0.1 10^3/uL (0.0- 0.1) 12/11/23 11:40 Nucleated RBC % (a uto) 0 % 12/11/23 11:40 Nucleated RBCs # 0.0 /100WBC 12/11/23 11:40 Sodium 143 mmol/L (136-1 45) 12/11/23 11:40 Potassium 4.3 mmol/L (3.5-5 .1) 12/11/23 11:40 Chloride 114 mmol/L (98-10 7) H 12/11/23 11:40 Carbon Dioxide 23 mmol/L (22-29) 12/11/23 11:40 Anion Gap 10.3 (5-19) 12/11/23 11:40 BUN 6 mg/dL (6-20) 12/11/23 11:40 Creatinine 0.7 mg/dL (0.5-0. 9) 12/11/23 11:40 GFR Calculation 90.9 mL/min (90-1 30) 12/11/23 11:40 Glucose 101 mg/dL (65-115 ) 12/11/23 11:40 Calculated Osmolal ity 294 mOsm/kg (285- 295) 12/11/23 11:40 Calcium 9.5 mg/dL (8.5-10 .5) 12/11/23 11:40 Total Bilirubin 0.5 mg/dL (0.15-1 .2) 12/11/23 11:40 AST 9 U/L (0-32) 12/11/23 11:40 ALT 13 U/L (0-33) 12/11/23 11:40 Alkaline Phosphata se 74 U/L (35-105) 12/11/23 11:40 Total Protein 6.4 g/dL (6.6-8.7 ) L 12/11/23 11:40 Albumin 4.1 g/dL (3.5-5.2 ) 12/11/23 11:40 Globulin 2.3 g/dL (1.3-4.6 ) 12/11/23 11:40 HCG, Qual Negative (Negati ve) 12/11/23 11:40 Salicylates 0.6 mg/dL (3-10) L 12/11/23 11:40 Urine Opiates Scre en Negative ng/mL (N egative) 12/11/23 11:50 Acetaminophen < 5.0 ug/mL (10-3 0) L 12/11/23 11:40 Ur Barbiturates Sc reen Negative ng/mL (N egative) 12/11/23 11:50 Lamotrigine 4.0 mcg/mL (2.5-1 5.0) 12/11/23 11:40 Ur Phencyclidine S crn Negative ng/mL (N egative) 12/11/23 11:50 Ur Amphetamines Sc reen Negative ng/mL (N egative) 12/11/23 11:50 U Benzodiazepines Scrn Positive ng/mL (N egative) H 12/11/23 11:50 [place] 0.8 mmol/L (0.6-1 .2) 12/11/23 11:40 Urine Cocaine Scre en Negative ng/mL (N egative) 12/11/23 11:50 U Marijuana (THC) Screen Negative ng/mL (N egative) 12/11/23 11:50 Ethyl Alcohol < 10 mg/dL (0-10) 12/11/23 11:40 Vitals: Last Vital Signs Temp 97.9 F 12/17/23 06:00 Pulse 86 12/17/23 06:00 Resp 17 12/17/23 06:00 BP 108/72 12/17/23 06:00 Pulse Ox 98 12/17/23 06:00 O2 Del Method Room Air 12/17/23 06:00 Discharge Plan Discharge Patient Disposition: Home Condition: Stable Prescriptions: New lamotrigine 100 mg Tablet 150 mg PO BEDTIME 14 Days Qty: 21 0RF lamotrigine 100 mg Tablet 100 mg PO 0900 14 Days Qty: 14 0RF Seroquel XR 200 mg tablet extended release 24 hr 200 mg PO 2000 Qty: 30 1RF Lovaza 1 gram capsule 2 cap PO BID Qty: 120 1RF Continued alprazolam [Xanax] 0.5 mg tablet 0.5 mg PO BID Qty: 60 2RF propranolol 160 mg capsule,extended release 24 hr 160 mg PO DAILY latanoprost 0.005 % drops 1 drp ophthalmic (eye) QPM gabapentin 300 mg capsule 300 mg PO TID Ubrelvy 100 mg tablet See Rx Instructions .ROUTE .COMPLEX Rx Instructions: TAKE 1 TABLET AT ONSET OF MIGRAINE, MAY REPEAT IN 2 HOURS IF NEEDED. MAX DOSE 200 MG IN 24 HOURS. Discontinued lamotrigine 100 mg tablet 100 mg PO BID Qty: 60 11RF lithium carbonate 300 mg tablet 450 mg PO BID Qty: 90 5RF Discharge Orders: Discharge Order (Routine); Ordered 12/17/23 Ordered By: Soham Stanford Referrals: Pallavi Baxter DO [Primary Care Provider] - Raji Cabral DO [Staff Physician] - 12/25/23 3:15 pm Discharge Diet: Usual diet Discharge Activity: Resume usual activity Patient Instructions: Generalized Anxiety Disorder, Lamotrigine (By mouth) (Lamictal, Lamictal CD, Lamictal ODT,..., Lamotrigine (By mouth), Quetiapine (By mouth) (Seroquel, Seroquel XR, Seroquel XR 14-Day..., Quetiapine (By mouth), [id number] Ethyl Esters (By mouth), Fish oil (By mouth), Bipolar Disorder (DC), Binge Eating Disorder (GEN), Opioid Safety, Pain Management Discharge Attestations NPU Time Spent in Discharge Care*: less than 30 min Specific Discharge Activities: Specific discharge activities: educating p atient, discussing with case management rn/social workers/dc planners and documenting/other paperwork Coding Level of Care Code Acute Code for Chg Fwd Diagnoses Bipolar II disorder, severe, depressed, with anxious distress F31.81 Generalized anxiety disorder F41.1 Binge eating disorder F50.81
[2023-12-17 14:19] VITALS: BP 108/72; PULSE 86; RESP 17; TEMP 36.6; O2SAT 98
[2023-12-17 14:24] VITALS: BP 108/72; PULSE 86; RESP 17; TEMP 36.6; O2SAT 98
== END 2023-12-17 16:16 | disposition home or self-care (01) | DRG 885 ==
LOC: ER 11:43 → NP 11:58
PROVIDERS: Admitting Provider Psychiatry & Neurology Psychiatry; Emergency Provider Physician Assistant; PCP Family Medicine; Visit Provider Psychiatry & Neurology Psychiatry
DX: F31.81 Bipolar II disorder (principal); R45.851 Suicidal ideations; Z68.43 Body mass index [BMI] 50.0-59.9, adult; I10 Essential (primary) hypertension; E66.01 Morbid (severe) obesity due to excess calories; G47.30 Sleep apnea, unspecified; F41.1 Generalized anxiety disorder; F50.81 Binge eating disorder; G44.229 Chronic tension-type headache, not intractable; G43.909 Migraine, unspecified, not intractable, without status migrainosus
CPT/HCPCS: 36415; 80053; 80175; 80178; 80306; 80307; 84703; 85025; 97150; 97165; 99285

== ENCOUNTER 2024-03-14 11:00 | Outpatient (CLI) | payer OTHER, SELFPAY ==
--- NOTE | 2024-03-14 11:05 | MM_ITS ---
WS: [id number] BILATERAL 3D TOMOSYNTHESIS DIGITAL SCREENING MAMMOGRAPHY WITH CAD CLINICAL INFORMATION: SCREENING HISTORY: Screening mammogram. No current complaints. COMPARISON: 2022 TECHNIQUE: Bilateral CC and MLO views. FINDINGS: The breasts are composed of heterogeneous fibroglandular density tissue, which can limit the detectio n of small underlying mass lesions. No suspicious mass, asymmetry, calcifications, or architectural d istortion. No evidence of malignancy. MM/[place] [id number] IMPRESSION: DENSITY:The breasts are heterogeneously dense, which may obscure small masses. BI-RADS: 2 - Benign FOLLOW UP: 1 Year Follow-up Recommend return to annual screening mammography.
== END 2024-03-14 11:01 | disposition home or self-care (01) ==
LOC: RAD 11:01
PROVIDERS: PCP Family Medicine; Visit Provider Family Medicine
DX: Z12.31 Encounter for screening mammogram for malignant neoplasm of breast (principal); R92.333 Mammographic heterogeneous density, bilateral breasts
CPT/HCPCS: 77063; 77067

== ENCOUNTER 2024-04-01 11:26 | Outpatient (CLI) | payer OTHER, SELFPAY ==
--- NOTE | 2024-04-01 11:34 | XR_ITS ---
WS: [id number] LEFT FOOT: 3 VIEW(S) TECHNIQUE: AP, oblique and lateral. HISTORY: PAIN IN LEFT FOOT COMPARISON: None available. No acute fracture or dislocation. Normal tarsal/metatarsal alignment. No healing stress fracture. Normal Lisfranc articulation. Mild diffuse soft tissue swelling surrounding the metatarsals. 5 mm calcaneal spur. XR/XR foot LT min 3V* [id number] IMPRESSION: 1. No abnormality noted in the fourth and fifth metatarsals. 2. Mild diffuse soft tissue edema surrounding the metatarsals. 3. Small calcaneal spur.
== END 2024-04-01 11:27 | disposition home or self-care (01) ==
PROVIDERS: PCP Family Medicine; Visit Provider Family Medicine
DX: M77.32 Calcaneal spur, left foot (principal); M79.672 Pain in left foot
CPT/HCPCS: 73630

== ENCOUNTER → 2024-06-10 10:53 | Outpatient (BNVA) | payer OTHER, SELFPAY | PROVIDERS: PCP Family Medicine; Visit Provider Psychiatry & Neurology Psychiatry | DX: Z79.899 Other long term (current) drug therapy | CPT/HCPCS: 80061; 83036 ==

== ENCOUNTER 2024-07-15 20:00 | Outpatient (CLI) | payer OTHER, SELFPAY | END 2024-07-15 20:01 | disposition home or self-care (01) | LOC: SLEEP 23:47 | PROVIDERS: PCP Family Medicine; Visit Provider Family Medicine | DX: G47.33 Obstructive sleep apnea (adult) (pediatric) (principal) | CPT/HCPCS: 95811 ==

== ENCOUNTER → 2025-01-19 08:09 | Outpatient (BNVA) | payer OTHER, SELFPAY | PROVIDERS: PCP Family Medicine; Visit Provider Specialist | DX: M25.561 Pain in right knee (principal); G89.29 Other chronic pain | CPT/HCPCS: 73560; 73565 ==

== ENCOUNTER 2025-01-19 09:56 | Outpatient (CLI) | payer OTHER, SELFPAY | END 2025-01-19 09:57 | disposition home or self-care (01) | LOC: SPT 09:56 | PROVIDERS: PCP Family Medicine; Visit Provider Specialist | DX: Z46.89 Encounter for fitting and adjustment of other specified devices (principal); M25.561 Pain in right knee | CPT/HCPCS: L1812 ==

== ENCOUNTER 2025-03-16 07:51 | Outpatient (CLI) | payer OTHER, SELFPAY ==
[2025-03-16 09:17] LABS: Creatinine 24 Hour Urine 779.0 mg/dL (601-1689); Total Volume Urine 2050 ml
== END 2025-03-16 07:52 | disposition home or self-care (01) ==
LOC: LAB 07:54
PROVIDERS: PCP Family Medicine; Visit Provider Internal Medicine
DX: R68.89 Other general symptoms and signs (principal); E66.813 Obesity, class 3; Z68.43 Body mass index [BMI] 50.0-59.9, adult
CPT/HCPCS: 82530; 82570

== ENCOUNTER 2025-05-22 08:07 | Outpatient (CLI) | payer OTHER, SELFPAY ==
--- NOTE | 2025-05-22 08:12 | MM_ITS ---
WS: [id number] VIEWS: MLO and CC views both breasts. 3D digital tomosynthesis is also included in this exam. Comparison made with prior exam of 12/14/2020, 01/03/2022, 01/18/2023, 03/14/2024.. Findings: The breasts are heterogeneously dense, which may obscure small masses. No suspicious mass, tumor calcification or architectural distortion. Several small stable appearing nodules in both breasts. MM/MM scr BI tomosynthesis [id number] Impression: BI-RADS: 2 - Benign FOLLOW-UP: 1 Year Follow-up This mammogram was also analyzed by the Computer Aided Detection System R2 Imag e Applications Processor.
== END 2025-05-22 08:08 | disposition home or self-care (01) ==
LOC: RAD 08:08
PROVIDERS: PCP Family Medicine; Visit Provider Family Medicine
DX: Z12.31 Encounter for screening mammogram for malignant neoplasm of breast (principal); R92.333 Mammographic heterogeneous density, bilateral breasts; R92.8 Other abnormal and inconclusive findings on diagnostic imaging of breast
CPT/HCPCS: 77063; 77067